=== PATIENT | female | born 1980 | race Caucasian/White ===

== ENCOUNTER 2020-03-24 12:49 | Outpatient (CLI) | payer BC, SELFPAY ==
--- NOTE | ~2020-03-24 | XR_ITS ---
EXAMINATION: XR knee LT min 4V DATE: 03/24/2020 13:26 INDICATION: Left knee pain. TECHNIQUE: 5 views of left knee were obtained. COMPARISON: None. FINDINGS: There is lateral subluxation of patella. No acute fracture. There is mild tricompartmental osteoarthritis. There is a 5 mm fragment of heterotopic ossification medial to patella. No knee joint effusion. IMPRESSION: 1. Mild left knee osteoarthritis. Reviewed, dictated and finalized at location A. S TRAINEE
== END 2020-03-24 12:50 ==
PROVIDERS: PCP Family Medicine; Visit Provider Family Medicine
DX: M17.12 Unilateral primary osteoarthritis, left knee (principal)
CPT/HCPCS: 73564

== ENCOUNTER 2020-04-28 17:17 | Emergency (ER) | payer BC, SELFPAY ==
--- NOTE | ~2020-04-28 | CT_ITS ---
EXAMINATION: CT abdomen pelvis w con INDICATION: Right lower quadrant abdominal pain TECHNIQUE: Computed tomographic images of the abdomen and pelvis were obtained after the administrati on of 100 cc of Omnipaque 350 intravenous contrast. The dose-length product (DLP) was 1237.32 mGy-cm. Automated exposure control and iterative reconstruction technique were employed. COMPARISON: None available FINDINGS: The lung bases are clear. The heart size is normal. The liver, spleen, pancreas, and adrena l glands are normal. Stones are present in the nondistended gallbladder. The left kidney is unremarka ble. There is a 6 mm nonobstructing stone of the right kidney. No stones are present in the ureters o r bladder. There is no hydronephrosis or hydroureter. The appendix is normal. No pathologically enlar ged abdominal or pelvic lymph nodes are identified. There is no free intraperitoneal gas or evidence of bowel obstruction. Fluid is noted in the endometrial canal which may relate to patient's menstrual cycle. IMPRESSION: 1. Cholelithiasis without evidence of cholecystitis. Reviewed, dictated and finalized at location A. RT OPERATOR
[2020-04-28 17:38] VITALS: BP 126/86; PULSE 106; RESP 16; TEMP 36.8; O2SAT 96
[2020-04-28 17:54] LABS: Basophils Absolute Auto 0.1 K/mm3 (0.0-0.1); Basophils Percent Auto 0.4 % (0.2-1.2); Eosinophils Absolute Auto 0.2 K/mm3 (0-0.3); Eosinophils Percent Auto 1.4 % (0-4.4); Hematocrit 40.4 % (37.0-47.0); Hemoglobin 13.3 g/dL (12.0-15.0); Immature Granulocyte Absolute 0.08 K/mm3 (0.00-0.031); Immature Granulocyte Percent A 0.7 % (0-0.5); Lymphocytes Percent Auto 24.1 % (18.3-44.2); Mean Corpuscular HGB Conc 32.9 g/dl (32-36); Mean Corpuscular Hemoglobin 28.5 pg (26-34); Mean Corpuscular Volume 86.7 fl (80-100); Mean Platelet Volume 8.9 fl (7.4-10.4); Monocytes Absolute Auto 0.7 K/mm3 (0.1-0.6); Monocytes Percent Auto 5.8 % (2.6-8.5); Neutrophils Absolute Auto 7.8 K/mm3 (1.3-6.7); Neutrophils Percent Auto 67.6 % (45.5-73.1); Platelet Count Result 464 k/mm3 (150-375); Red Blood Count 4.66 M/mm3 (4.2-5.4); Red Cell Distribution Width 13.1 % (11.5-14.5); White Blood Count 11.6 K/mm3 (4.5-10.0)
[2020-04-28 18:06] LABS: Add Urine Microscopic? YES; Amorphous Sediment Urine Moderate; Appearance Urine Cloudy (Clear); Bacteria Urine Trace /hpf; Bilirubin Urine Negative (Negative); Blood Urine Negative (Negative); Color Urine Yellow (Yellow); Glucose Urine UA Negative (Negative); Ketones Urine Negative (Negative); Leukocyte Esterase Ur Negative LEU/UL (Negative); Mucus Urine Rare /lpf; Nitrate Urine Negative (Negative); Protein Urine 1+ mg/dL (Negative); RBC Urine 0-2 /hpf (0-2); Specific Grav Ur 1.018 (1.001-1.035); Squamous Epithelial Cell Urine Many /hpf (Few); Urobilinogen Urine Negative mg/dL (<2.0); WBC Urine 0-3 /hpf
[2020-04-28 18:07] LABS: Alanine Aminotransferase 15 U/L (4-35); Albumin Level 4.3 g/dL (3.5-5.1); Alkaline Phosphatase 113 U/L (38-126); Anion Gap 7 mmol/L (8-16); Aspartate Amino Transferase 22 U/L (14-36); Bilirubin,Total 0.6 mg/dL (0.2-1.3); Blood Urea Nitrogen 9 mg/dL (7-17); Calcium 9.6 mg/dL (8.4-10.2); Carbon Dioxide 24 mmol/L (22-30); Chloride 105 mmol/L (98-107); Estimated Glomerular Filt Rate > 60; Glucose 136 mg/dL (65-105); Lipase 157 U/L (23-300); Potassium 3.7 mmol/L (3.4-5.0); Sodium 136 mmol/L (137-145)
--- NOTE | 2020-04-28 20:26 | ED.GENADULT ---
HPI - General Adult General Chief complaint: Abdominal Pain Stated complaint: Abdominal pain Time Seen by Provider: 04/28/20 19:50 Source: patient History of Present Illness HPI narrative: Patient is a 39 y/o female complaining of abdominal pain and bloating starting 2 weeks ago. She describes her pain as sharp and rates it as 5/10. Her pain is mostly located in right lower abdomen. She states she took laxative which did not help. She also had some vomiting today. Related Data Allergies Allergy/AdvReac Type Severity Reaction Status Date / Time No Known Allergies Allergy Unverified 06/02/12 12:18 Review of Systems Constitutional: Constitutional: Denies chills, Denies fever(s), Denies headache(s) and Denies weakness Eyes: Eyes: Denies blurry vision ENT: Denies headache(s) and Denies neck pain Cardiovascular: Cardiovascular: Denies chest pain and Denies dyspnea Respiratory: Respiratory: Denies cough and Denies dyspnea Gastrointestinal: Gastrointestinal: Reports abdominal pain, Denies diarrhea, Reports nausea and Reports vomiting Genitourinary: Genitourinary: Denies hematuria and Denies dysuria Musculoskeletal: Musculoskeletal: Denies back pain and Denies neck pain Neurologic: Denies headache(s) and Denies weakness [facility] Family History Family History Father Acute myocardial infarction, Onset Age: 39 Mother Family history of congestive heart failure, Onset Age: 69 Social History Social History Smoking status: Current every day smoker Alcohol intake: current Exam Const: General: no acute distress and well developed Orientation/consciousness: oriented to person, oriented to place, oriented to time and patient oriented x3 HENMT: Head: normocephalic Ears: external ears normal General nose exam: Normal external nose present Eyes: General: appearance normal, both eyes and all related structures Conjunctivae: conjunctivae normal Neck: Neck: normal visual inspection and full ROM Chest: Chest palpation & inspection: normal inspection of the chest and no tenderness Resp: Effort & Inspection: normal respiratory effort Auscultation: clear to auscultation bilaterally Cardio: Rate: regular rate Rhythm: regular rhythm GI: GI Palp: No abdominal tenderness and Yes Soft to palpation Skin: General skin exam: normal color and turgor normal Neuro: General: oriented to person, oriented to place, oriented to time and patient oriented x3 Cognition (Neuro): normal cognition Extrem: General: normal to inspection, full ROM and no pedal edema Psych: Appearance: grossly normal Mental Status: mental status grossly normal Affect: normal affect Course Vital Signs Vital signs: Vital Signs Temperature 36.8 C 04/28/20 17:38 Pulse Rate 106 H 04/28/20 17:38 Respiratory Rate 16 04/28/20 17:38 Blood Pressure 126/86 04/28/20 17:38 Pulse Oximetry 96 04/28/20 17:38 Temperature 36.8 C 04/28/20 17:38 Pulse Rate 68 04/28/20 22:53 Respiratory Rate 16 04/28/20 22:53 Blood Pressure 118/75 04/28/20 22:53 Pulse Oximetry 100 04/28/20 22:53 Medical Decision Making Vital Signs Vital Signs: Vital Signs Temperature 36.8 C 04/28/20 17:38 Pulse Rate 106 H 04/28/20 17:38 Respiratory Rate 16 04/28/20 17:38 Blood Pressure 126/86 04/28/20 17:38 Pulse Oximetry 96 04/28/20 17:38 Temperature 36.8 C 04/28/20 17:38 Pulse Rate 68 04/28/20 22:53 Respiratory Rate 16 04/28/20 22:53 Blood Pressure 118/75 04/28/20 22:53 Pulse Oximetry 100 04/28/20 22:53 Lab Data Result diagrams: 04/28/20 17:43 04/28/20 17:43 Labs: Lab Results 04/28/20 04/28/20 04/28/20 Range/Units 17:43 17:43 17:50 WBC 11.6 H (4.5-10.0) K/mm3 RBC 4.66 (4.2-5.4) M/mm3 Hgb 13.3 (12.0-15.0) g/dL Hct 40.4 (37.0-47.0) %
[2020-04-28 22:53] VITALS: BP 118/75; PULSE 68; RESP 16; O2SAT 100
== END 2020-04-28 22:54 | disposition home or self-care (01) ==
PROVIDERS: Emergency Provider Emergency Medicine; PCP Family Medicine
DX: K80.20 Calculus of gallbladder without cholecystitis without obstruction (principal); F17.200 Nicotine dependence, unspecified, uncomplicated
CPT/HCPCS: 36415; 74177; 80053; 81001; 81025; 83690; 85025; 99284; Q9967

== ENCOUNTER → 2021-09-24 07:57 | Outpatient (CLI) | payer SELFPAY ==
--- NOTE | ~2021-09-24 | MR_ITS ---
EXAMINATION: MR knee LT wo con DATE: 09/24/2021 08:43 INDICATION: Knee dislocation with meniscal tear. Chronic anterior and lateral left knee pain and swel ling. TECHNIQUE: Magnetic resonance imaging (MRI) of the left knee was performed without intravenous contra st. Sequences included coronal PD-weighted FSE, coronal PD-weighted FS FSE, sagittal T2-weighted FSE , sagittal PD-weighted FS FSE and axial PD weighted fat saturated FSE. COMPARISON: Left knee radiographs dated 08/23/2021 and 03/24/2020 FINDINGS: Medial compartment: Medial meniscus is normal. Articular cartilage is normal. Lateral compartment: Lateral meniscus is normal. Articular cartilage is normal. Patellofemoral compartment: Chronic 1.5 cm lateral subluxation of the left patella. Full-thickness chondral ulceration at the pat ellar apical ridge and medial side of the lateral facet without degenerative subchondral changes and at the lateral half of the lateral trochlea where there is mild underlying cortical irregularity and minimal underlying edema-like marrow signal change. Ligaments and tendons: Anterior and posterior cruciate ligaments are normal. The medial collateral ligament and fibular jessica ateral ligament complex are normal. The extensor mechanism is normal. Mild tendinopathy of the distal semimembranosus tendon without discrete tear. The visualized medial and lateral hamstring tendons as well as the iliotibial band are otherwise normal. Fluid: Minimal left knee joint effusion at the lateral gutter of the suprapatellar pouch. Osseous/other: No fracture or pathologic marrow replacing process. A couple heterotopic ossicles in the fat pad joo g the inferior and medial margins of the patella, the larger measuring 1.3 x 0.5 x 1.0 cm. IMPRESSION: 1. 1.5 cm lateral patellar subluxation with high-grade patellar and lateral trochlear chondromalacia. 2. Mild semimembranosus tendinopathy without tear. Reviewed, dictated and finalized at location A. IMPRESSION: 1. 1.5 cm lateral patellar subluxation with high-grade patellar and lateral tro chlear chondromalacia. 2. Mild semimembranosus tendinopathy without tear.
== END ==
PROVIDERS: PCP Family Medicine; Visit Provider Nurse Practitioner Family
DX: M25.562 Pain in left knee (principal); S83.012A Lateral subluxation of left patella, initial encounter; M22.42 Chondromalacia patellae, left knee; M76.52 Patellar tendinitis, left knee
CPT/HCPCS: 99199; 73721

== ENCOUNTER 2022-07-18 02:48 | Emergency (ER) | payer OTHER, BC, SELFPAY ==
--- NOTE | ~2022-07-18 | CT_ITS ---
EXAMINATION: CT abdomen pelvis wo con DATE: 07/18/2022 03:38 INDICATION: Left flank pain. TECHNIQUE: Computed tomography (CT) of the abdomen and pelvis was performed without intravenous contr ast. Automated exposure control and iterative reconstruction technique were employed. The dose-length product was 768.12 mGy-cm. COMPARISON: CT abdomen and pelvis 04/28/2020 FINDINGS: The visualized portions of the lung bases are clear without pneumonia or pleural effusion. The heart size is normal. No pericardial effusion. The liver and spleen are normal. There are changes of cholecystectomy. There are dropped gallstones posterior to the liver. The pancreas and adrenal gl ands are normal. There are 2 stones in right kidney measuring up to 5 mm. There are 4 stones in left kidney measuring up to 5 mm. There is mild left hydronephrosis and hydroureter. There is a 3 mm stone in distal left ureter. There is a tampon in the vagina. There are no dilated loops of bowel. The gwen endix is normal. There is an umbilical hernia containing fat. There are no pathologically enlarged ly mph nodes. There is no free intraperitoneal fluid. There is mild chronic anterior wedging of multiple vertebral bodies. There are chronic bilateral L5 pars defects. There is moderate thoracic spondylosi s and mild lumbar spondylosis. IMPRESSION: 1. 3 mm stone in distal left ureter with mild left hydronephrosis and hydroureter. 2. Bilateral nonobstructing kidney stones. 3. Umbilical hernia containing fat. Reviewed, dictated and finalized at location A. IMPRESSION: 1. 3 mm stone in distal left ureter with mild left hydronephrosis and hydrouret er. 2. Bilateral nonobstructing kidney stones. 3. Umbilical hernia containing fat.
[2022-07-18 02:53] VITALS: BP 130/62; PULSE 84; RESP 14; TEMP 36.6; O2SAT 99
--- NOTE | 2022-07-18 03:27 | PC.NURSE ---
pt left department to get scan.
--- NOTE | 2022-07-18 03:38 | ED.GENADULT ---
HPI - General Adult General Chief complaint: Urogenital-Female Stated complaint: Kidney stone Time Seen by Provider: 07/18/22 03:08 History of Present Illness HPI narrative: Patient is a 42-year-old female who presents the emergency department with chief complaint possible kidney stone. Patient reports that today she started having pain in the left flank area reports it radiates to the left lower quadrant patient reports that she had difficulty getting comfortable at home and ultimately was able to get the pain to calm down. Patient denies nausea or vomiting reports that the bleeding has been controlled at home prior to arrival. Related Data Home Medications Medication Instructions Recorded Confirmed hydroxyzine HCl 10 mg tablet 10 mg PO TID PRN 08/23/21 olanzapine 5 mg tablet 5 mg PO DAILY 08/23/21 sertraline 50 mg tablet 50 mg PO DAILY 08/23/21 Allergies Allergy/AdvReac Type Severity Reaction Status Date / Time adhesive tape AdvReac Unknown Redness of Verified 08/27/21 09:19 Skin Review of Systems Review of Systems: A 10 system review of systems was completed on the patient and is negative except for what is stated in the HPI. Nursing and ancillary documentation was reviewed. [facility] Past Medical History Medical History Injury of ligament of knee Left knee pain Patellar subluxation Surgical History Surgical History History of cholecystectomy Family History Family History Father Acute myocardial infarction, Onset Age: 39 Mother Family history of congestive heart failure, Onset Age: 69 Social History Social History Smoking packs per day: 1 Smoking cigarettes per day: 20.0 Smoking status: Current every day smoker Tobacco type: cigarettes Alcohol intake: unknown Substance use: current Substance use type: marijuana Living arrangements: alone Occupation/Education: occupation Exam Narrative: GENERAL: Well-appearing, well-nourished, and in no acute distress. HEAD: Normocephalic, atraumatic. EYES: PERRLA and EOMI. ENT: Nares clear, no rhinorrhea or epistaxis. Mucous membranes moist. NECK: Supple. CHEST: Clear to auscultation. No respiratory distress. HEART: Regular rate and rhythm. No murmur heard. Normal peripheral pulses. ABDOMEN: Soft, nontender, nondistended, normal active bowel sounds. EXTREMITIES: Normal range of motion. No edema. SKIN: Warm, dry, no rash. NEURO: No focal deficits. Alert and oriented x3. PSYCH: Normal mood and affect. Course Vital Signs Vital signs: Vital Signs Temperature 36.6 C 07/18/22 02:53 Pulse Rate 84 07/18/22 02:53 Respiratory Rate 14 07/18/22 02:53 Blood Pressure 130/62 07/18/22 02:53 Pulse Oximetry 99 07/18/22 02:53 Oxygen Delivery Room Air 07/18/22 02:53 Temperature 36.6 C 07/18/22 02:53 Pulse Rate 69 07/18/22 06:40 Respiratory Rate 16 07/18/22 06:40 Blood Pressure 99/61 L 07/18/22 06:40 Pulse Oximetry 99 07/18/22 06:40 Oxygen Delivery Room Air 07/18/22 02:53 Medical Decision Making MDM Narrative Medical decision making narrative: Differential diagnosis includes ureterolithiasis, UTI, pyelonephritis, intra-abdominal infection, Laboratory studies were obtained which showed normal CBC CMP showed a creatinine of 0.7 with normal liver enzymes CT scan of the abdomen pelvis showed 1. 3 mm stone in distal left ureter with mild left hydronephrosis and hydroureter. 2. Bilateral nonobstructing kidney stones. 3. Umbilical hernia containing fat. Vital Signs Vital Signs: Vital Signs Temperature 36.6 C 07/18/22 02:53 Pulse Rate 84 07/18/22 02:53 Respiratory Rate 14 07/18/22 02:53 Blood Pressure
[2022-07-18] MEDS: SODIUM CHLORIDE 0.9% IV 1,000 ML 999 ML IV CONT (04:17)
[2022-07-18] MEDS: ONDANSETRON INJ 4 MG/2 ML VIAL IV PUSH (04:18)
[2022-07-18] MEDS: MORPHINE SULFATE (*CRX) 4 MG/ML INJ IV PUSH (04:18)
[2022-07-18 04:20] LABS: Basophils Absolute Auto 0.1 K/mm3 (0.0-0.1); Basophils Percent Auto 0.6 % (0.2-1.2); Eosinophils Absolute Auto 0.2 K/mm3 (0-0.3); Eosinophils Percent Auto 1.9 % (0-4.4); Hematocrit 40.9 % (37.0-47.0); Hemoglobin 13.7 g/dL (12.0-15.0); Immature Granulocyte Absolute 0.04 K/mm3 (0.00-0.031); Immature Granulocyte Percent A 0.5 % (0-0.5); Lymphocytes Percent Auto 21.2 % (18.3-44.2); Mean Corpuscular HGB Conc 33.5 g/dl (32-36); Mean Corpuscular Hemoglobin 30.1 pg (26-34); Mean Corpuscular Volume 89.9 fl (80-100); Mean Platelet Volume 8.6 fl (7.4-10.4); Monocytes Absolute Auto 0.5 K/mm3 (0.1-0.6); Monocytes Percent Auto 5.5 % (2.6-8.5); Neutrophils Percent Auto 70.3 % (45.5-73.1); Platelet Count Result 371 k/mm3 (150-375); Red Blood Count 4.55 M/mm3 (4.2-5.4); Red Cell Distribution Width 12.4 % (11.5-14.5); White Blood Count 8.5 K/mm3 (4.5-10.0)
[2022-07-18 04:30] LABS: Alanine Aminotransferase 21 U/L (6-35); Alkaline Phosphatase 81 U/L (38-126); Anion Gap 5 mmol/L (8-16); Aspartate Amino Transferase 26 U/L (14-36); Bilirubin,Total 0.6 mg/dL (0.2-1.3); Blood Urea Nitrogen 10 mg/dL (7-17); Calcium 9.2 mg/dL (8.4-10.2); Carbon Dioxide 29 mmol/L (22-30); Chloride 105 mmol/L (98-107); Estimated Glomerular Filt Rate > 60; Glucose 111 mg/dL (65-110); Lipase 80 U/L (23-300); Sodium 139 mmol/L (137-145)
[2022-07-18 06:40] VITALS: BP 99/61; PULSE 69; RESP 16; O2SAT 99
[2022-07-18 06:45] LABS: Bacteria Urine None Seen /hpf; Non Pathogenic Casts 0-2; RBC Urine >100 /hpf (0-2); Squamous Epithelial Cell Urine Occasional /hpf (Few)
[2022-07-18 06:55] LABS: Appearance Urine Cloudy (Clear); Bilirubin Urine Negative (Negative); Blood Urine 3+ (Negative); Glucose Urine UA Negative (Negative); Ketones Urine Negative (Negative); Leukocyte Esterase Ur Trace LEU/UL (Negative); Nitrate Urine Negative (Negative); Protein Urine Trace mg/dL (Negative); Specific Grav Ur 1.012 (1.001-1.035); Urobilinogen Urine 0.2 mg/dL (<2.0); pH Urine 6.5 (5.0-9.0)
[2022-07-18 06:56] LABS: Color Urine Light Red (Yellow)
[2022-07-18 06:57] LABS: Add Urine Microscopic? YES
[2022-07-18 07:35] VITALS: BP 99/66; PULSE 69; RESP 16; O2SAT 97
== END 2022-07-18 07:25 | disposition home or self-care (01) ==
PROVIDERS: Emergency Provider Emergency Medicine; PCP Family Medicine
DX: N20.1 Calculus of ureter (principal); N39.0 Urinary tract infection, site not specified
CPT/HCPCS: 36415; 74176; 80053; 81001; 81025; 83690; 85025; 87086; 87088; 96361; 96374; 96375; 99284; J2270; J2405; J7030

== ENCOUNTER 2022-11-07 15:24 | Emergency (ER) | payer OTHER, BC, SELFPAY ==
[2022-11-07 15:35] VITALS: BP 120/80; PULSE 98; RESP 18; TEMP 36.8; O2SAT 98
--- NOTE | 2022-11-07 16:05 | ED.URI ---
HPI - URI/Sore Throat General Chief Complaint: Upper Respiratory Infection Stated Complaint: Mouth Pain History of Present Illness HPI Narrative: 42-year-old female presented for complaint of burning tongue and mouth over the past few days. States her tongue appears coated and reports 'growths' on the back of her tongue. Has not been taking antibiotics. Denies bleeding. Not taking anything for symptoms. Denies n/v/d/f/c. Daily smoker. Related Data Home Medications Medication Instructions Recorded Confirmed hydroxyzine HCl 10 mg tablet 10 mg PO TID PRN 08/23/21 olanzapine 5 mg tablet 5 mg PO DAILY 08/23/21 sertraline 50 mg tablet 50 mg PO DAILY 08/23/21 Allergies Allergy/AdvReac Type Severity Reaction Status Date / Time adhesive tape AdvReac Unknown Redness of Verified 11/07/22 15:44 Skin Review of Systems Review of Systems: CONSTITUTIONAL: Denies body aches, fever, chills, or sweats. EYES: Denies visual changes, redness, or discharge. ENT: Reports throat pain Denies rhinorrhea, congestion, or otalgia. CARDIOVASCULAR: Denies chest pain, palpitations, or edema. RESPIRATORY: Denies dyspnea. GASTROINTESTINAL: Denies abdominal pain, nausea, vomiting, or diarrhea. SKIN: Denies rash, itching, or wounds. MUSCULOSKELETAL: Denies back pain, joint pain, or myalgia. NEUROLOGIC: Denies headache PMFSH Past Medical History Medical History Injury of ligament of knee Left knee pain Patellar subluxation Surgical History Surgical History History of cholecystectomy Family History Family History Father Acute myocardial infarction, Onset Age: 39 Mother Family history of congestive heart failure, Onset Age: 69 Social History Social History Smoking packs per day: 1 Smoking cigarettes per day: 20.0 Smoking status: Current every day smoker Tobacco type: cigarettes Alcohol intake: unknown Substance use: current Substance use type: marijuana Living arrangements: alone Occupation/Education: occupation Exam Narrative: GENERAL: well-appearing EYES: conjunctivae clear ENT: Mucous membranes moist. TM pearly singh with normal light reflex bilaterally; no tragal tenderness. Oropharynx erythematous without lesions. Tonsils enlarged and without exudate. 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 No drooling, bleeding, no hoarseness, no trismus, uvula midline. No tripod positioning, hot potato voice, or soft palate swelling. NECK: Supple. No lymphadenopathy CHEST: Clear to auscultation, breath sounds equal. No respiratory distress, speaks in full sentences. HEART: Regular rate and rhythm. No murmur heard. SKIN: Warm, dry, no rash. NEURO: Alert and oriented x3. Course Course Emergency Course: Patient is aware of diagnosis, understands and agrees to treatment plan. Anticipatory guidance given. Patient agrees to follow-up as directed and is aware of reasons to seek care at the emergency department. Portions of this record may have been created with voice recognition software Level of Care: Express Care Visit Vital Signs Vital signs: Vital Signs Temperature 98.3 F 11/07/22 15:35 Pulse Rate 98 11/07/22 15:35 Respiratory Rate 18 11/07/22 15:35 Blood Pressure 120/80 11/07/22 15:35 Pulse Oximetry 98 11/07/22 15:35 Oxygen Delivery Room Air 11/07/22 15:35 Temperature 98.3 F 11/07/22 15:35 Pulse Rate 98 11/07/22 15:35 Respiratory Rate 18 11/07/22 15:35 Blood Pressure 120/80 11/07/22 15:35 Pulse Oximetry 98 11/07/22 15:35 Oxygen Delivery Room Air 11/07/22 15:35 MDM - URI/Sore Throat MDM Narrative Medical decision making narrative: strep result reviewed with pt; will send Nystatin for
== END 2022-11-07 16:20 | disposition home or self-care (01) ==
PROVIDERS: Emergency Provider Nurse Practitioner Family; PCP Family Medicine
DX: B37.0 Candidal stomatitis (principal); F17.210 Nicotine dependence, cigarettes, uncomplicated; F12.90 Cannabis use, unspecified, uncomplicated
CPT/HCPCS: 87081; 87880; 99213; G0463

== ENCOUNTER 2023-01-20 09:48 | Outpatient (CLI) | payer OTHER, BC, SELFPAY ==
--- NOTE | ~2023-01-20 | US_ITS ---
US thyroid INDICATION: Solitary thyroid nodule. TECHNIQUE: Real-time sonographic images of the thyroid gland were obtained. COMPARISON: No prior studies for comparison. FINDINGS: The right thyroid lobe measures 5.8 x 2.8 x 3.1 cm. The left thyroid lobe measures 4.5 x 1 .4 x 1.5 cm. Thyroid echotexture is heterogeneous.. In the right lobe there is a complex heterogeneou s solid mass measuring 3.9 x 2.8 x 2.9 cm which is solid, hypoechoic, wider than tall, smoothly nataly nated with macrocalcifications, TR 4. Normal vascular flow is present. IMPRESSION: 1. Complex right thyroid mass measuring 3.9 cm. Ultrasound-guided fine-needle aspiration biopsy di mmended. Reviewed, dictated and finalized at location B. SPORTATION MAINTENANCE SPECIALIST IMPRESSION: 1. Complex right thyroid mass measuring 3.9 cm. Ultrasound-guided fine-needle aspiration biopsy recommended.
== END 2023-01-20 09:49 ==
LOC: MICIMG 09:51
PROVIDERS: PCP Family Medicine; Visit Provider Family Medicine
DX: E04.1 Nontoxic single thyroid nodule (principal)
CPT/HCPCS: 76536

== ENCOUNTER 2023-03-16 14:45 | Outpatient (RCR) | payer OTHER, BC, SELFPAY ==
--- NOTE | 2023-03-02 09:49 | OTOPDC ---
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 She underwent resection Feb 08, 2023. Pathology has not confirmed whether the tumor is malignant, so she is unsure whether she'll have to do radiation. 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 Patient reporting difficulties with short term memory and attention. She reports she is in the process of requesting ST orders for the residual cognitive difficulties. She works for [employer] in a [employer] and is going back to work Mar 22. 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 She cannot drive for 6 months due to seizure precautions. Patient is right handed and lives at home with her . She has returned to being independent with ADLs. She hasn't returned to cooking due to having difficulty following steps to cook. Assessment OT Clinical Summary Patient referred to OT with dx of brain lesion s/p tumor resection. She presents with intact, functional, and symmetrical upper body strength. Hand strength and coordination is WNL. She is currently at her baseline with ADLs. No skilled OT indicated at this time. Patient would benefit from a speech therapy evaluation for assessment of cognitive skills. Plan of Care OT Services Indicated No
--- NOTE | 2023-03-02 13:09 | PTOPEVAL1 ---
Assessment and note entered by Yemi Elliott Evaluation Information Assessment Status Evaluation Diagnosis brain lesion Onset 12/28/22 Subjective Information Pt. reports that she was diagnosed with a brain tumor in December. She underwent resection in January. She is awaiting biopsy results. She states that her doctor is concerned because she has developed balance issues. She reports that her left knee has a tendency to dislocated causing her to fall. She has visited with an ortho who suggested surgery, but she is waiting for a referral to a surgeon in [place]. She states that since the brain tumor development she notices her self feeling some disorientation in standing. She recalls experiencing 2 falls in the past 6 months. Pt. reports that she is currently off work. 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 She reports that she was pretty active prior to injury . Pt. reports that her chornic dislocation of the left knee and balance issues concern her most. Her goal for therapy is to improve her balance and prevent knee dislocation. Reported Pain Level Pain Score 8,3: Self Report Pain Score 8: Self Report Assessment PT Clinical Summary Pt. is a 42 year old female who enters the clinic following development of a brain lesion resulting in balance issues. Pt. also presents with indications of left patellar instability. Continued skilled PT is recommended in order to improve strength of the l.e., balance, reduce pain and improve functional mobility. Plan of Care Interventions Electrical Stimulation,Hot Pack/Cold Pack, Mechanical Traction,Neuro Re-education,Patient/ Caregiver Educati,Therapeutic Activities, Therapeutic Exercise,Self-Care/Home Management PT Services Indicated Yes Treatment Frequency and 2x/week x 10 visits Duration These treatments will address the objective and functional deficits as defined above. The patient will be advanced safely and appropriately in order for the patient to progress towards his/her prior level of function. Additional exercises will be introduced and as well as a comprehensive home exercise program upon discharge, if needed, ?to ensure carryover of functional gains achieved in the clinic. This treatment plan has been reviewed and agreement upon by the patient.
--- NOTE | 2023-03-02 13:11 | OPREHPOC ---
Outpatient Therapy Plan of Care This is a Multidisciplinary Plan of Care that may contain components documented by all disciplines (PT, OT, and ST.) PT Problem 1 PT Problem #1 Knowledge Deficit PT Goal 1 Goal Pt. will be independent with a HEP focusing on l.e . strength and stability. Target Visit 2 PT Problem 2 PT Problem #2 Impaired Balance PT Goal 1 Goal Pt. will score 28/28 on the tinetti -Pt. will be able to maintain single limb stance on right and left for 30 seconds without LOB. Target Visit 10 PT Problem 3 PT Problem #3 Impaired Strength PT Goal 1 Goal Pt. will present with 5/5 bilateral hip abduction strength in order to improve stability at the left knee. Target Visit 10 PT Problem 4 PT Problem #4 Impaired Functional Mobil PT Goal 1 Goal Pt. abraham report no episodes of falls or LOB in a 4- 5 week period -Pt. will improve her LEFS score to 60 or better indicating overall improvement in funciton. Target Visit 10
--- NOTE | 2023-03-08 16:05 | STOPEVAL1 ---
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 She reported that she had been having seizures for approximately ten years and began having daily seizures for about four years, until reaching at least four seizures a day prior to diagnosing the tumor. She reports she went to her primary care physician who sent her to a neurologist for an MRI. At that time two tumors were found to be connected to each other and both were removed at the same time in January. Because the tumors were found to be non-malignant, no chemotherapy or radiation was required. Patient reports she still has some motion issues for which she is seeing Physical Therapy. She reports that currently, she has difficulty following conversations, following directions, and some difficulty with word-finding. She describes it as requiring a moment to articulate the word she is trying to think of; for example if she is trying to say the word red, she knows what the color looks like but she would have to take a moment to pull out the word red. Patient stated she still requires her to assist with with recall for medication. Today the [place] Naming Test and the [facility] Adult Cognitive Evaluation were offered. Given the [place] Naming Test, patient recalled 40/ 56 words placing her below expected norms. 50-56 is expected for normal aging population. Given the choice of four written words for each item, she increased recall of words to 52/56 items. Given the cognitive evaluation, patient exhibited some issues with immediate recall for lengthy and complex information as patient required therapist to restate directions, statements, and short paragraph story information on several occasions. She recalled temporal, spatial, and biographical information with no deficits noted. Patient was given functional math and again, required therapist to repeat t
--- NOTE | 2023-03-08 16:06 | OPREHPOC ---
Outpatient Therapy Plan of Care This is a Multidisciplinary Plan of Care that may contain components documented by all disciplines (PT, OT, and ST.) PT Problem 1 PT Problem #1 Knowledge Deficit PT Goal 1 Goal Pt. will be independent with a HEP focusing on l.e . strength and stability. Target Visit 2 PT Problem 2 PT Problem #2 Impaired Balance PT Goal 1 Goal Pt. will score 28/28 on the tinetti -Pt. will be able to maintain single limb stance on right and left for 30 seconds without LOB. Target Visit 10 PT Problem 3 PT Problem #3 Impaired Strength PT Goal 1 Goal Pt. will present with 5/5 bilateral hip abduction strength in order to improve stability at the left knee. Target Visit 10 PT Problem 4 PT Problem #4 Impaired Functional Mobil PT Goal 1 Goal Pt. abraham report no episodes of falls or LOB in a 4- 5 week period -Pt. will improve her LEFS score to 60 or better indicating overall improvement in funciton. Target Visit [address] Problem #[address] Goal 1 Goal 1. Patient will voice understanding of areas of deficit and how best to address each area, for example use of memory strategies to facilitate recall. Target Visit [address] Problem #[address] Goal 1 Goal 1. Patient will voice understanding of memory strategies with 90% acc. 2. Patient will determine which strategies would be most beneficial given a variety of situations 90% of the time. Target Visit 8 ST Goal 2 Goal 1. Patient will use memory strategies to facilitate recall of new, oqlojjka-ka-[id number] level information given only one presentation by therapist 80% of the time. 2. Patient will voice steps to tasks that she uses at work in order to assist with visualiziing a successful return to to work 80% acc. for all steps listed for each task. Target Visit 8
--- NOTE | 2023-03-22 15:59 | PCPTNOTE ---
cancelled due to illness
--- NOTE | 2023-03-23 08:02 | PCSTNOTE ---
Therapist was notified by clerical staff that patient would be unable to attend ST sessions this week due to no ride and physician appointment conflicts. Continue next week.
--- NOTE | 2023-03-27 08:43 | PTOPDC ---
Assessment and note entered by Ariadne Espinoza, PT [place] Information Assessment Status Assessment PT Clinical Summary Ms. Shah has received 5 PT sessions, from Mar 02 to . She then called and canceled her appointments. The goals were not addressed. Discharge PT per pt request. Plan of Care PT Services Indicated No
--- NOTE | 2023-03-27 12:08 | STOPDC ---
Assessment and note entered by Yasmeen Yee MACHINIST WOOD Evaluation Information Assessment Status Discharge - Pt Not Presen Assessment Status Discharge - Pt Not Presen Assessment ST Clinical Summary SPEECH THERAPY DISCHARGE SUMMARY This patient was seen for a Speech Evaluation 12/20 and then four additional treatment sessions to address instruction for memory strategies and to address attention to detail. She was instructed in specific memory strategies that we use to recall new information, and then asked to determine the most appropriate strategies for a variety of common situations, such as learning someone's name or recalling where she set down her phone. She completed these tasks with success. She was also presented with new material for recall and demonstrated some mild deficits when distracted before being asked to recall/restate the new information, but without distraction, she exhibited adequate recall. She was discharged with initial goals met but could have benefitted from continued tasks to address that attention to detail and recall given distraction. Thank you for this referral. Plan of Care ST Services Indicated No
== END 2023-03-27 09:51 | disposition home or self-care (01) ==
LOC: ANHST 14:45
PROVIDERS: PCP Family Medicine
DX: D49.6 Neoplasm of unspecified behavior of brain (principal); G93.9 Disorder of brain, unspecified
CPT/HCPCS: 92507; 96125; 97110; 97112; 97161; 97165; 97530

== ENCOUNTER 2023-04-10 12:24 | Outpatient (CLI) | payer OTHER, BC, SELFPAY ==
--- NOTE | ~2023-04-10 | US_ITS ---
EXAMINATION: US FNA w image guidance DATE: 04/10/2023 13:44 INDICATION: Mass of thyroid gland. TECHNIQUE: The procedure and its benefits and risks were discussed with the patient. Risks specifically discusse d included bleeding. The patient verbalized understanding of the risks and agreed to proceed. The nec k was prepped and draped in the usual sterile manner. 1% lidocaine was used for local anesthesia. 6 passes were made with a 25G needle into the lesion under ultrasound guidance. There were no immedia te complications. FINDINGS: Grayscale ultrasound images demonstrate needles advanced into a 3.9 cm nodule in right thyroid lobe f or biopsy. IMPRESSION: 1. Ultrasound-guided fine needle aspiration of a right thyroid nodule. Reviewed, dictated and finalized at location A. PRINTER
== END 2023-04-10 12:25 | disposition home or self-care (01) ==
PROVIDERS: PCP Family Medicine; Visit Provider Family Medicine
DX: E04.9 Nontoxic goiter, unspecified (principal)
CPT/HCPCS: 10005; 88172; 88173; 88305

== ENCOUNTER 2023-04-11 15:08 | Outpatient (CLI) | payer OTHER, BC, SELFPAY ==
--- NOTE | ~2023-04-11 | MR_ITS ---
MRI of the brain Clinical History: Brain tumor Technique: Axial and sagittal T1-weighted images were acquired. These were followed by axial T2-weigh jojo, diffusion weighted, gradient, and FLAIR images. Following intravenous administration of 20 cc Mu ltiHance gadolinium, T1-weighted fat-sat imaging was performed in the axial, coronal, and sagittal pl anes. Findings: There is an area of postsurgical encephalomalacia involving the right temporal lobe, with t hin peripheral enhancement about the operative bed. There is a slightly more prominent focal area of enhancement along the medial margin of the encephalomalacia, which could be related to choroid plexus (series 8 image 10), though focal residual/recurrent tumor is difficult to completely exclude. There is dural thickening and enhancement of the right temporal region, probably reactive due to prior gardenia hiren. There is evidence of prior right temporal craniotomy. Remainder the brain parenchyma is unremarkable. Ventricles are spaces are unremarkable. Orbits are unremarkable. Paranasal sinuses and mastoid air ce lls are clear. Major intracranial flow voids are intact. Sagittal midline structures are intact. 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 Fo marcellus area of slightly more prominent enhancement medially at the operative bed could reflect choroid p javon, though focal residual/recurrent tumor is difficult to completely exclude. Comparison with any prior postoperative MRIs would be useful to assess for stability of findings. Otherwise, follow-up ex am in 3 months recommended to reassess. Probable reactive dural thickening and enhancement at the right temporal region related to prior surg ronda/craniotomy. Reviewed, dictated and finalized at location M. 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 Focal area of slightly more prominent enhancement medially at the operative bed could reflect choroid plexus, though focal residual/recurr ent tumor is difficult to completely exclude. Comparison with any prior postope rative MRIs would be useful to assess for stability of findings. Otherwise, fol low-up exam in 3 months recommended to reassess. Probable reactive dural thickening and enhancement at the right temporal region related to prior surgery/craniotomy.
== END 2023-04-11 15:09 | disposition home or self-care (01) ==
LOC: ANHIMG 15:08
PROVIDERS: PCP Family Medicine
DX: D49.6 Neoplasm of unspecified behavior of brain (principal)
CPT/HCPCS: 70553; A9577

== ENCOUNTER 2023-05-20 21:41 | Emergency (ER) | payer OTHER, BC, SELFPAY ==
--- NOTE | ~2023-05-20 | CT_ITS ---
EXAMINATION: CT abdomen pelvis w con DATE: 05/20/2023 23:52 INDICATION: Left flank pain, intermittent TECHNIQUE: Computed tomography (CT) of the abdomen and pelvis was performed without intravenous contr ast. The dose-length product was 1396.55 mGy-cm. Automated exposure control and iterative reconstruct ion technique were employed. COMPARISON: CT dated 03/2022. FINDINGS: Lung bases unremarkable. Heart size normal. There are distal left ureteral stones with mode rate left hydronephrosis. There is delayed left nephrogram. There are nonobstructing bilateral renal stones. Small fat-containing umbilical hernia. Gallbladder is likely surgically absent. Small fat-containing umbilical hernia. Moderate lower thoracic spondylosis. IMPRESSION: 1. Obstructing distal left ureteral stones with moderate hydronephrosis. 2: Bilateral nephrolithiasis. Reviewed, dictated and finalized at location A.
[2023-05-20 21:48] VITALS: BP 135/73; PULSE 88; RESP 19; TEMP 36; O2SAT 99
[2023-05-20 22:42] LABS: Basophils Percent Auto 0.3 % (0.2-1.2); Eosinophils Absolute Auto 0.2 K/mm3 (0-0.3); Eosinophils Percent Auto 1.6 % (0-4.4); Hematocrit 39.1 % (37.0-47.0); Hemoglobin 12.3 g/dL (12.0-15.0); Immature Granulocyte Absolute 0.07 K/mm3 (0.00-0.031); Immature Granulocyte Percent A 0.5 % (0-0.5); Lymphocytes Absolute Auto 2.02 K/mm3 (0.9-3.2); Lymphocytes Percent Auto 15.9 % (18.3-44.2); Mean Corpuscular HGB Conc 31.5 g/dl (32-36); Mean Corpuscular Hemoglobin 28.3 pg (26-34); Mean Corpuscular Volume 89.9 fl (80-100); Mean Platelet Volume 8.8 fl (7.4-10.4); Monocytes Absolute Auto 0.6 K/mm3 (0.1-0.6); Monocytes Percent Auto 4.3 % (2.6-8.5); Neutrophils Absolute Auto 9.9 K/mm3 (1.3-6.7); Neutrophils Percent Auto 77.4 % (45.5-73.1); Platelet Count Result 400 k/mm3 (150-375); Red Blood Count 4.35 M/mm3 (4.2-5.4); Red Cell Distribution Width 13.5 % (11.5-14.5); White Blood Count 12.7 K/mm3 (4.5-10.0)
[2023-05-20 22:56] LABS: Alanine Aminotransferase 16 U/L (6-35); Albumin Level 4.2 g/dL (3.5-5.1); Alkaline Phosphatase 98 U/L (38-126); Anion Gap 7 mmol/L (8-16); Aspartate Amino Transferase 30 U/L (14-36); Bilirubin,Total 0.3 mg/dL (0.2-1.3); Blood Urea Nitrogen 10 mg/dL (7-17); Calcium 9.5 mg/dL (8.4-10.2); Carbon Dioxide 26 mmol/L (22-30); Chloride 105 mmol/L (98-107); Estimated Glomerular Filt Rate > 60; Glucose 130 mg/dL (65-110); Lipase 161 U/L (23-300); Potassium 3.7 mmol/L (3.4-5.0); Sodium 138 mmol/L (137-145)
--- NOTE | 2023-05-20 23:31 | ED.ABDPAIN ---
HPI - Abdominal Pain General Chief Complaint: Abdominal Pain Stated Complaint: Bilateral flank pain, n/v Time Seen by Provider: 05/20/23 22:53 Source: patient Mode of arrival: ambulatory Limitations: no limitations History of Present Illness HPI narrative: This is a 43 year old female that presents to the ER for left flank/abdominal pain. Ongoing over the last couple weeks. Reports history of kidney stones and her pain feels similar. Reports associated nausea, vomiting and dysuria. Denies fevers or hematuria. Related Data Home Medications Medication Instructions Recorded Confirmed hydroxyzine HCl 10 mg tablet 10 mg PO TID PRN Anxiety 08/23/21 11/07/22 olanzapine 5 mg tablet 5 mg PO DAILY 08/23/21 11/07/22 sertraline 50 mg tablet 50 mg PO DAILY 08/23/21 11/07/22 Allergies Allergy/AdvReac Type Severity Reaction Status Date / Time adhesive tape AdvReac Unknown Redness of Verified 05/20/23 21:52 Skin ibuprofen AdvReac Other Verified 05/20/23 21:52 Review of Systems Review of Systems: CONSTITUTIONAL: Denies fever GASTROINTESTINAL: Reports abdominal pain, nausea, vomiting GENITOURINARY: Reports dysuria. Denies hematuria. All systems reviewed & are unremarkable except as noted in HPI and below PMFSH Past Medical History Medical History Injury of ligament of knee Left knee pain Patellar subluxation Surgical History Surgical History History of cholecystectomy Family History Family History Father Acute myocardial infarction, Onset Age: 39 Mother Family history of congestive heart failure, Onset Age: 69 Social History Social History Smoking packs per day: 1 Smoking cigarettes per day: 20.0 Smoking status: Current every day smoker Tobacco type: cigarettes Alcohol intake: unknown Substance use: current Substance use type: marijuana Living arrangements: alone Occupation/Education: occupation Exam Narrative: GENERAL: Well-appearing, well-nourished, and in no acute distress. HEAD: Normocephalic, atraumatic. EYES: EOMI. CHEST: Clear to auscultation. No respiratory distress. No wheezes rales or rhonchi HEART: Regular rate and rhythm. No murmur heard. Normal peripheral pulses. ABDOMEN: Soft, nontender, nondistended, normal active bowel sounds. No CVA tenderness EXTREMITIES: Normal range of motion. No edema. SKIN: Warm, dry, no rash. NEURO: No focal deficits. Alert and oriented x3. PSYCH: Normal mood and affect Course Course Emergency Course: Patient updated on workup and agrees with plan of care Vital Signs Vital signs: Vital Signs Temperature 96.8 F L 05/20/23 21:48 Pulse Rate 88 05/20/23 21:48 Respiratory Rate 19 05/20/23 21:48 Blood Pressure 135/73 05/20/23 21:48 Pulse Oximetry 99 05/20/23 21:48 Oxygen Delivery Room Air 05/20/23 21:48 Temperature 96.8 F L 05/20/23 21:48 Pulse Rate 89 05/21/23 01:35 Respiratory Rate 14 05/21/23 01:35 Blood Pressure 132/74 05/21/23 01:35 Pulse Oximetry 99 05/21/23 01:35 Oxygen Delivery Room Air 05/20/23 21:48 MDM - Abdominal Pain MDM Narrative Medical decision making narrative: Patient presents the emergency department for left-sided abdominal and flank pain. History of kidney stones. She is afebrile and nontoxic appearing. Her vitals are stable. CBC with mild leukocytosis to 12.7. Metabolic panel with normal kidney function. UA without evidence of infection. Does show greater than [address] abdomen and pelvis shows 2 left distal ureteral stones. Patient updated on her workup and agrees with plan of care. Pain is currently under control. Will be started on Flomax, given pain medication and urine strainer. Instructed to have c
[2023-05-20] MEDS: MORPHINE SULFATE (*CRX) 4 MG/ML INJ IV PUSH (23:37)
[2023-05-20] MEDS: ONDANSETRON INJ 4 MG/2 ML VIAL IV PUSH (23:37)
[2023-05-20] MEDS: SODIUM CHLORIDE 0.9% IV 1,000 ML 999 ML IV CONT (23:37)
[2023-05-21 01:03] LABS: Bacteria Urine None Seen /hpf; Need Manual Microscopic Reviewed; Non Pathogenic Casts 0-2; RBC Urine >100 /hpf (0-2); Squamous Epithelial Cell Urine None Seen /hpf (Few); WBC Urine 0-5 /hpf (0-3)
[2023-05-21 01:05] LABS: Appearance Urine Clear (Clear); Blood Urine 3+ (Negative); Color Urine Light Yellow (Yellow); Glucose Urine UA Negative (Negative); Ketones Urine Negative (Negative); Nitrate Urine Negative (Negative); Protein Urine Negative (Negative)
[2023-05-21 01:06] LABS: Add Urine Microscopic? YES; Bilirubin Urine Negative (Negative); Leukocyte Esterase Ur Negative LEU/UL (Negative); Urobilinogen Urine 0.2 mg/dL (<2.0)
[2023-05-21 01:35] VITALS: BP 132/74; PULSE 89; RESP 14; O2SAT 99
[2023-05-21] MEDS: TAMSULOSIN HCL 0.4 MG CAPSULE PO (01:51)
[2023-05-21] MEDS: HYDROcodone/acetaminophen (*CRX) 5-325 MG TABLET 1 TAB PO (01:51)
[2023-05-21 01:58] VITALS: BP 130/88; PULSE 86; RESP 17; O2SAT 100
== END 2023-05-21 01:59 | disposition home or self-care (01) ==
PROVIDERS: Emergency Provider Physician Assistant; PCP Family Medicine
DX: N13.2 Hydronephrosis with renal and ureteral calculous obstruction (principal); F17.210 Nicotine dependence, cigarettes, uncomplicated; Z87.442 Personal history of urinary calculi; Z90.49 Acquired absence of other specified parts of digestive tract
CPT/HCPCS: 36415; 74177; 80053; 81001; 83690; 85025; 96361; 96374; 96375; 99284; A9270; J2270; J2405; J7030; Q9967

== ENCOUNTER 2023-05-25 01:39 | Day surgery (SDC) | payer OTHER, BC, SELFPAY ==
[2023-05-23 10:36] VITALS: BMI 51.9
--- NOTE | 2023-05-23 10:44 | PC.NURSE ---
Report to the Outpatient Waiting Room, entrance under the green pavilion located off [facility], at time 0830 on date 05/25/23. Planned Procedure Time: 1030. Time changes happen often and if your time is changed the preop area will call you the afternoon before. - You and your visitor will be asked to self-screen and do not enter if you have any COVID symptoms. - A mask is optional within the hospital at this time. Patients may have clear liquids (water, carbonated beverages, clear teas, apple juice) until 3 hours prior to surgery with a maximum of 20 ounces. - No food from midnight until time of surgery - Infants may have breast milk until 4 hours before surgery, infant formula 6 hours prior to surgery. - Children will be allowed to drink immediately following surgery. If applicable, please bring a bottle or sippy cup to assist with drinking. Juice, water, soda, and popsicles are readily available. For infants on formula, please bring formula the day of surgery. Pacifiers are allowed. Take the following medications with a SIP of water the morning of surgery: HYDROCODONE IF NEEDED, LAMOTRIGINE, OLANZAPINE, SERTRALINE DO NOT STOP ANY OF YOUR OTHER PRESCRIPTION MEDICATIONS PRIOR TO SURGERY ?EXCEPT THE FOLLOWING Medications to discontinue per physician: N/A Date to take last dose: N/A Please no make-up, nail romanian, hairspray, perfume, deodorant, or body powder the day of surgery. No jewelry (including any body piercings) or valuables the day of surgery, leave them at home. Please take a shower or bath the night before, or the morning of, surgery with an antibacterial soap. Wear comfortable, loose fitting clothing. - Jewelry must be removed prior to entering the operating room. Rings and piercings that are not removed may be cut off. - The hospital will not accept responsibility for valuables. - Please leave all valuables, including medications, at home the day of surgery. If you are going home after surgery, a licensed compactor driver must drive you home. - NO public transportation without another adult if you receive anesthesia. - We recommend that an adult stay with you for 24 hours following discharge. - We also recommend that you do not drive, make important decision, drink alcoholic beverages, or take any drugs that were not prescribed by your health care provider for at least 24 hours after your discharge time. Follow any additional instructions given to you from your surgeon. If you or anyone in your household have experienced Covid symptoms in the past week, please notify your surgeon or the nurse liaison at the phone number below for possible testing. Telephone instructions given to PT - RUTHLESS and asked if any additional questions and then verbalized understanding. Patient advised to call surgeon office or pre surgery nurse liaison [phone] if any additional questions.
[2023-05-25] VITALS (8 sets, daily range): BP systolic 124–154; BP diastolic 57–93; PULSE 62–94; RESP 12–18; TEMP 36.1–36.4; O2SAT 97–100
--- NOTE | ~2023-05-25 | XR_ITS ---
EXAMINATION: XR retrograde pyelo w/stent LT DATE: 05/25/2023 10:59 INDICATION: Left internal ureteral stent placed TECHNIQUE: Fluoroscopic images from a left internal ureteral stent placement are submitted for review . 39 seconds of fluoroscopy time. FINDINGS: There is a left double-J internal ureteral stent projecting in expected position, with proximal [place] loop at the level of the renal pelvis and distal loop in the pelvis within the bladder lumen. IMPRESSION: 1. Left internal ureteral stent placement. Please refer to real-time procedural findings for detail s. Reviewed, dictated and finalized at location L. IMPRESSION: 1. Left internal ureteral stent placement. Please refer to real-time procedur al findings for details.
--- NOTE | 2023-05-25 06:00 | WPDHPUPDATE1 ---
History and Physical Update Update Date/Time: 05/25/23 06:00 History and Physical has been reviewed, including an updated exam of the patient. There are NO changes in the patient's condition. Risks, benefits, and alternatives have been discussed and questions answered. Patient agrees to proceed with procedure.
--- NOTE | 2023-05-25 08:47 | ECG_ITS ---
Measurements Intervals [place] Rate: 59 P: 41 ME: 160 QRS: 4 QRSD: 87 T: 7 QT: 400 QTc: 399 Interpretive Statements SINUS BRADYCARDIA INFERIOR INFARCT, AGE INDETERMINATE ABNORMAL ECG NO PREVIOUS ECG AVAILABLE FOR COMPARISON Electronically Signed On 05-25-2023 9:36:30 CDT by Mauricio Love D.O.
[2023-05-25] MEDS: LACTATED RINGERS 1,000 ML 30 ML IV CONT (09:05)
--- NOTE | 2023-05-25 10:01 | P.PNAN_ITS ---
Anes - Initial Pre Proc Eval Procedure: Operation Date: 05/25/23 10:30 Proposed Procedures p Cystoscopy, Left Ureteroscopy, Left Stone Extraction, Left Retrogade Pyelogram, Left Stent Placement, Possible Holmium Laser Lithotripsy - Bari Lomeli MD Date/Time: 05/25/23 10:01 Surgeon: Bari Lomeli MD Pre Op Diagnosis: Lt Ureteral Stone Patient Data Age: 43 Gender: F Height: 1.45 m Weight: 103 kg Last Vital Signs Temp 97.6 F 05/25/23 08:37 Pulse 78 05/25/23 08:37 Resp 18 05/25/23 08:37 BP 124/57 L 05/25/23 08:37 Pulse Ox 97 05/25/23 08:37 O2 Del Method Room Air 05/25/23 08:37 Allergies Allergy/AdvReac Type Severity Reaction Status Date / Time adhesive tape AdvReac Unknown Redness of Verified 05/25/23 08:50 Skin ibuprofen AdvReac Other Verified 05/25/23 08:50 Home Medications Medication Instructions Recorded Confirmed Type olanzapine 5 mg tablet 5 mg PO DAILY 08/23/21 05/25/23 History sertraline 50 mg tablet 50 mg PO DAILY 08/23/21 05/25/23 History hydrocodone 5 mg-acetaminophen 325 1 tablet PO Q6H PRN pain #20 tabs 05/21/23 05/25/23 Rx mg tablet tamsulosin 0.4 mg capsule 0.4 mg PO DAILY #14 caps 05/21/23 05/25/23 Rx lamotrigine 100 mg tablet 200 mg PO DAILY 05/23/23 05/25/23 History Patient hx anesthesia problems: none Family hx anesthesia problems: none Results Review: All pre-operative results and documents have been reviewed as part of the pre- operative evaluation. [facility] Past Medical History Medical History Injury of ligament of knee Left knee pain Patellar subluxation Surgical History Surgical History History of cholecystectomy Family History Family History Father Acute myocardial infarction, Onset Age: 39 Mother Family history of congestive heart failure, Onset Age: 69 Social History Social History Smoking packs per day: 1 Smoking cigarettes per day: 20.0 Years smoked: 23 Smoking pack-years: 23.00 Smoking status: Current every day smoker Tobacco type: cigarettes Alcohol intake: never Substance use: current Substance use type: marijuana Living arrangements: with family Occupation/Education: occupation Spiritual care concerns: No Anes - Eval Final PreProcedure Day of Procedure 05/25/23 10:01 Patient weight: super morbidly obese Heart: regular rate and rhythm Lungs: clear to auscultation Airway: Mallampati scale class II Neurological: alert and oriented Last oral intake: >/= 8 hours ASA classification: III Emergent: no Anesthetic plan: proceed Anesthesia type and monitoring: general LMA and standard monitoring Results Review: All pre-operative results and documents have been reviewed as part of the pre- operative evaluation. Informed Consent: The patient's anesthetic plan and its attendant risks and benefits were dis cussed with the patient/family/POA. Questions were solicited and answers provided to the satisfaction of the patient/family/POA.
[2023-05-25] MEDS: ceFAZolin 2 GM/D5W 50 ML 2 GM/50 ML BAG IVPB (10:09)
[2023-05-25] MEDS: LIDOCAINE HCL 2% GEL UROJET 10 ML PKG MUCOUS MEM (10:37)
--- NOTE | 2023-05-25 11:25 | SUR.PHASEI ---
1125:Simple mask removed.
--- NOTE | 2023-05-25 11:33 | W.PM.PROC2 ---
Procedure Note - Detailed Date of Procedure 05/25/23 Pre-op Diagnosis Lt Ureteral Stone Post-op Diagnosis Same Procedure Performed Cystoscopy, left ureteroscopy with laser lithotripsy, stone extraction and stent placement, left retrograde pyelogram Surgeon Bari Lomeli MD Anesthesia General Description of Procedure Patient is brought to the operative suite where she is prepped and draped in routine sterile fashion while in dorsal lithotomy position after the uneventful induction of a general LMA anesthetic. Cystoscopy was undertaken with a 19 F rigid cystoscope. Bladder neck and urethra endoscopically normal. Bladder was normal without hyperemia of the mucosa or neoplasm. She has a single orthotopic ureteral orifice bilaterally. A 0.035 in glidewire advanced into her left renal pelvis. The distal ureter was dilated with an 8 F 10 F dilator. Left ureteroscopy was undertaken 1st with a semi-rigid ureteroscope. She has a sizable stone overlying the left mid ureter at the level of the sacrum. Using a 200 micron holmium laser fiber I dusted the stone and remove all fragments with a 1.9 F disposable stone basket. I performed retrograde pyelography and proximal ureteral re-endoscopy with a 7.5 F flexible ureteral scope. All calices were carefully inspected. There was a 1 additional small stone which was extracted with the same basket. I did place a 4.8 F variable length ureteral stent with proximal coil in the renal pelvis distal coil in the bladder. Scopes and wires removed she was taken recovery room good condition. Drains Yes Packing No Pathology Yes Complications No immediate complications
[2023-05-25] MEDS: oxyCODONE HCL (*CRX) 5 MG TAB IR PO (12:10)
== END 2023-05-25 12:44 | disposition home or self-care (01) ==
PROVIDERS: PCP Family Medicine; Visit Provider Urology
PROC: (CPT 52352; principal; 2023-05-25 10:30)
DX: N20.1 Calculus of ureter (principal); F17.210 Nicotine dependence, cigarettes, uncomplicated; F12.90 Cannabis use, unspecified, uncomplicated; E66.01 Morbid (severe) obesity due to excess calories; Z68.42 Body mass index [BMI] 45.0-49.9, adult; Z79.891 Long term (current) use of opiate analgesic; Z90.49 Acquired absence of other specified parts of digestive tract; Z82.49 Family history of ischemic heart disease and other diseases of the circulatory system
CPT/HCPCS: 52356; 74420; 82365; 88300; 93005; A9270; C1769; C2617; J0690; J1100; J2250; J2405; J2704; J3010; J7120; Q9966

== ENCOUNTER 2023-08-14 15:41 | Outpatient (CLI) | payer OTHER, BC, SELFPAY ==
--- NOTE | ~2023-08-14 | MR_ITS ---
EXAMINATION: MR brain/brain stem wo/w con DATE: 08/14/2023 17:07 INDICATION: Brain tumor. TECHNIQUE: Magnetic resonance imaging (MRI) of the brain and brainstem was performed without and with 20 mL MultiHance intravenous contrast. COMPARISON: Brain MRI 04/11/2023 FINDINGS: There is a resection cavity in right temporal lobe. There is pachymeningeal thickening and enhancement overlying the right temporal lobe with thickness of 3 mm. There is a 7 x 4 x 4 mm mass of contrast enhancement at the medial aspect of the resection cavity. There are scattered areas of nons pecific increased T2-weighted signal intensity in the cerebral white matter, which is within normal l imits for the patient's age. There is no intracranial hemorrhage or acute infarction. The ventricles are normal in size. The orbits are normal. There is mild mucosal thickening in the paranasal sinuses. The mastoid air cells are normal. IMPRESSION: 1. Worsened mass of contrast enhancement at the medial aspect of the right temporal lobe resection ca vity suspicious for residual or recurrent neoplasm. Reviewed, dictated and finalized at location E. IMPRESSION: 1. Worsened mass of contrast enhancement at the medial aspect of the right temp oral lobe resection cavity suspicious for residual or recurrent neoplasm.
== END 2023-08-14 15:42 | disposition home or self-care (01) ==
LOC: ANHIMG 15:44
PROVIDERS: PCP Family Medicine
DX: D33.2 Benign neoplasm of brain, unspecified (principal)
CPT/HCPCS: 70553; A9577

== ENCOUNTER 2023-09-06 09:38 | Outpatient (CLI) | payer OTHER, BC, SELFPAY ==
--- NOTE | ~2023-09-06 | XR_ITS ---
XR heel LT min 2V Ordering provider: Rishi Leach, TELEPHONE [employer]IN BOX COLLECTOR History: . Pain Left Heel . Comparison: None. FINDINGS: BONES: No acute fracture or dislocation. Calcaneal spur. JOINT SPACES: Well maintained. SOFT TISSUES: Normal. IMPRESSION: No acute osseous abnormality. Reviewed, dictated and finalized at location A.
== END 2023-09-06 09:39 ==
LOC: MICIMG 09:41
PROVIDERS: PCP Nurse Practitioner Family; Visit Provider Nurse Practitioner Family
DX: M79.672 Pain in left foot (principal)
CPT/HCPCS: 73650

== ENCOUNTER 2024-01-23 10:50 | Emergency (ER) | payer OTHER, BC, SELFPAY ==
--- NOTE | ~2024-01-23 | CT_ITS ---
EXAMINATION: CT brain wo con DATE: 01/23/2024 12:53 INDICATION: Closed head injury TECHNIQUE: Computed tomography (CT) of the head was performed without intravenous contrast. Sagittal and coronal reconstructions were performed. The mA was adjusted according to patient size. Iterative reconstruction technique was employed. The dose-length product was 681.00 mGy-cm. COMPARISON: Brain MR dated 08/14/2023 FINDINGS: No fracture. Again seen is a likely postoperative region of encephalomalacia at the right temporal lo be underlying a right craniotomy with plate and screw fixation. No acute intracranial hemorrhage, acu te infarction or abnormal extra axial fluid collection. Ventricles are normal and symmetric. No mass/ mass effect. Mucous retention cyst in the left sphenoid sinus. The orbits and mastoid air cells are n ormal. IMPRESSION: 1. No fracture or acute intracranial process. 2. Postoperative changes with region of encephalomalacia in the right temporal lobe and overlying craniologist niotomy. Reviewed, dictated and finalized at location A. CAL TRANSLATOR IMPRESSION: 1. No fracture or acute intracranial process. 2. Postoperative changes with region of encephalomalacia in the right temporal lobe and overlying craniotomy.
--- NOTE | ~2024-01-23 | CT_ITS ---
EXAMINATION: CT cervical spine wo con DATE: 01/23/2024 12:53 INDICATION: Closed head injury TECHNIQUE: Computed tomography (CT) of the cervical spine was performed without intravenous contrast. Automated exposure control and iterative reconstruction technique were employed. The dose-length pro duct was 553.71 mGy-cm. COMPARISON: None FINDINGS: 8 degree cervical thoracic dextrocurvature. Sagittal alignment is normal. Vertebral body heights are normal. No fracture. Moderate disc height loss at C2-C3 and T2-T3. Mild disc height loss at C3-C4 thr ough T1-T2. Posterior disc osteophyte complex resulting in mild central canal stenosis at C5-C6. Ly re facet osteoarthritis on the right at T2-T3. Moderate facet osteoarthritis on the bilaterally at C3 -C4 and T1-T2 and on) was reviewed by left at T2-T3. Mild facet osteoarthritis the remaining cervical facet joints. No neural foraminal stenosis. Visualized apices of lungs are clear. Coarse calcificati ons at a 3.8 cm right thyroid mass which was biopsied on 04/10/2023.. Cervical soft tissues are otherw ise unremarkable. Postoperative change of prior right temporal craniotomy with postoperative region o f encephalomalacia in the right temporal lobe. IMPRESSION: 1. Mild cervical spondylosis without acute osseous abnormality. 2. 3.8 cm right thyroid mass. Correlate with pathology from biopsy performed on 04/10/2023. 3. Likely postoperative region of encephalomalacia in the right temporal lobe with overlying cranioto my. Reviewed, dictated and finalized at location A. ER OFF IMPRESSION: 1. Mild cervical spondylosis without acute osseous abnormality. 2. 3.8 cm right thyroid mass. Correlate with pathology from biopsy performed on 04/10/2023. 3. Likely postoperative region of encephalomalacia in the right temporal lobe w ith overlying craniotomy.
[2024-01-23 10:54] VITALS: BP 123/92; PULSE 78; RESP 19; TEMP 36.4; O2SAT 100
[2024-01-23 11:37] VITALS: BP 111/65; PULSE 74; RESP 20; TEMP 36.7; O2SAT 99
[2024-01-23 12:51] LABS: Alanine Aminotransferase 16 U/L (6-35); Albumin Level 4.4 g/dL (3.5-5.1); Alkaline Phosphatase 103 U/L (38-126); Anion Gap 7 mmol/L (4-12); Aspartate Amino Transferase 28 U/L (14-36); Bilirubin,Total 0.4 mg/dL (0.2-1.3); Blood Urea Nitrogen 11 mg/dL (7-17); Calcium 9.3 mg/dL (8.4-10.2); Carbon Dioxide 25 mmol/L (22-30); Chloride 105 mmol/L (98-107); Estimated Glomerular Filt Rate > 60; Glucose 96 mg/dL (65-110); Magnesium 2.1 mg/dL (1.6-2.3); Potassium 3.9 mmol/L (3.4-5.0); Sodium 137 mmol/L (137-145)
[2024-01-23 13:17] LABS: Basophils Absolute Auto 0.1 K/mm3 (0.0-0.1); Basophils Percent Auto 0.6 % (0.2-1.2); Eosinophils Absolute Auto 0.1 K/mm3 (0-0.3); Eosinophils Percent Auto 1.5 % (0-4.4); Hematocrit 41.5 % (37.0-47.0); Hemoglobin 13.2 g/dL (12.0-15.0); Immature Granulocyte Absolute 0.02 K/mm3 (0.00-0.031); Immature Granulocyte Percent A 0.3 % (0-0.5); Mean Corpuscular HGB Conc 31.8 g/dl (32-36); Mean Corpuscular Hemoglobin 28.8 pg (26-34); Mean Corpuscular Volume 90.4 fl (80-100); Mean Platelet Volume 8.3 fl (7.4-10.4); Monocytes Absolute Auto 0.4 K/mm3 (0.1-0.6); Monocytes Percent Auto 4.5 % (2.6-8.5); Neutrophils Percent Auto 63.1 % (45.5-73.1); Platelet Count Result 396 k/mm3 (150-375); Red Blood Count 4.59 M/mm3 (4.2-5.4); Red Cell Distribution Width 13.7 % (11.5-14.5)
--- NOTE | 2024-01-23 13:53 | ED_ITS ---
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 She presents to the emergency department today with a chief complaint of a ground level mechanical fall while tripping over a rug. She denies losing consciousness but does have a previous intracranial history wanted to be reassured that she did not hurt herself or have any kind of injury to her previous surgical sites. No obvious signs of trauma does not take any blood thinner medications. 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 No loss of consciousness today and she was able to get up unassisted after her fall. She otherwise appears well and is in her normal state of health. Regular follows up with her doctor. Related Data Home Medications Medication Instructions Recorded Confirmed olanzapine 5 mg tablet 5 mg PO DAILY 08/23/21 05/25/23 sertraline 50 mg tablet 50 mg PO DAILY 08/23/21 05/25/23 lamotrigine 100 mg tablet 200 mg PO DAILY 05/23/23 05/25/23 Allergies Allergy/AdvReac Type Severity Reaction Status Date / Time adhesive tape AdvReac Unknown Redness of Verified 05/25/23 08:50 Skin ibuprofen AdvReac Other Verified 05/25/23 08:50 Review of Systems Review of Systems: As reviewed above in HPI [facility] Past Medical History Medical History Injury of ligament of knee Left knee pain Patellar subluxation Surgical History Surgical History History of cholecystectomy Family History Family History Father Acute myocardial infarction, Onset Age: 39 Mother Family history of congestive heart failure, Onset Age: 69 Social History Social History Smoking packs per day: 1 Smoking cigarettes per day: 20.0 Years smoked: 23 Smoking pack-years: 23.00 Smoking status: Current every day smoker Tobacco type: cigarettes Alcohol intake: never Substance use: current Substance use type: marijuana Living arrangements: with family Occupation/Education: occupation Spiritual care concerns: No Exam Narrative: GENERAL: [Well-appearing, well-nourished, and in no acute distress.] HEAD: Right-sided parietal scalp craniotomy site appears intact without any obvious signs of injury. No scalp hematomas are evident. Full range of motion of the head EYES: [PERRLA and EOMI.] ENT: Nares clear, no rhinorrhea or epistaxis. Mucous membranes moist. NECK: Supple. No cervical or upper thoracic spinal sinus or any obvious step- offs deformities CHEST: [Clear to auscultation. No respiratory distress.] HEART: [Regular rate and rhythm]. No murmur heard. [Normal peripheral pulses.] ABDOMEN: [Soft, nondistended], [nontender], [No rigidity or guarding] EXTREMITIES: Normal range of motion. [No edema.] SKIN: Warm, dry, no rash. NEURO: [No focal deficits]. Alert and oriented [x3.] PSYCH: [Normal mood and affect.] Course Vital Signs Vital signs: Vital Signs Temperature 36.4 C 01/23/24 10:54 Pulse Rate 78 01/23/24 10:54 Respiratory Rate 19 01/23/24 10:54 Blood Pressure 123/92 H 01/23/24 10:54 Pulse Oximetry 100 01/23/24 10:54 Oxygen Delivery Room Air 01/23/24 10:54 Temperature 36.7 C 01/23/24 11:37 Pulse Rate 74 01/23/24 11:37 Respiratory Rate 20 01/23/24 11:37 Blood Pressure 111/65 01/23/24 11:37 Pulse Oximetry 99 01/23/24 11:37 Oxygen Delivery Room Air 01/23/24 10:54 MDM - Fall MDM Narrative Medical decision making narrative: 43-year-old female with a history of brain mass status post resection and craniotomy last year. She presents today with a chief complaint of a ground level mechanical fall with hitting her head on the right side. This is the same side she had her surgical procedure on. This was 1 year prior and she has been doing well since. She does have some residual partial seizure activity occasionally but takes medications for this without any recent seizure activity. Fall was purely mechanical in patient states she tripped over a new rug she bought. No blood thinner use since out lose consciousness. Normal reassuring vital signs and she otherwise appears well without any obvious external signs of injury. She has normal reassuring neurological assessment and appears in good spirits. CT head was obtained given her significant intracranial history with elevated potential for skull fracture, displaced with the previous craniotomy site, brain bleed or any other intra cranial process but likelihood given the reassuring exam today. Laboratory studies were also obtained in addition to a CT cervical spine. CT scan of the head shows no acute fractures or intracranial process. Postoperative changes in the area the right temporal lobe with the overlying craniotomy seen. CT cervical spine shows no acute osseous abnormalities. No known thyroid mass which patient has had biopsied previously this year. Postoperative encephalomalacia right temporal lobe. Laboratory studies showed no leukocytosis or anemia. Normal electrolytes without any evidence of electrolyte disturbances or any anion gap. Patient was re-evaluated and still asymptomatic. She is stable for discharge home at this time. Will give her low-dose Robaxin for can neck stiffness and she will follow up with her regular primary care provider and neurologist on outpatient basis. Patient expressed understanding of these instructions and safe for discharge at this time. Medical Records Attestation: I reviewed the patient's medical records. Lab Data Attestation: I reviewed the patient's lab results. 01/23/24 13:09 01/23/24 12:30 Labs: Lab Results 01/23/24 01/23/24 Range/Units 12:30 13:09 WBC 8.0 (4.5-10.0) K/mm3 RBC 4.59 (4.2-5.4) M/mm3 Hgb 13.2 (12.0-15.0) g/dL Hct 41.5 (37.0-47.0) % MCV 90.4 (80-100) fl MCH 28.8 (26-34) pg MCHC 31.8 L (32-36) g/dl RDW 13.7 (11.5-14.5) % Plt Count 396 H (150-375) k/mm3 MPV 8.3 (7.4-10.4) fl Immature Gran % (Auto) 0.3 (0-0.5) % Neut % (Auto) 63.1 (45.5-73.1) % Lymph % (Auto) 30.0 (18.3-44.2) % [place] % (Auto) 4.5 (2.6-8.5) % Eos % (Auto) 1.5 (0-4.4) % Baso % (Auto) 0.6 (0.2-1.2) % Lymph # (Auto) 2.40 (0.9-3.2) K/mm3 [place] # (Auto) 0.4 (0.1-0.6) K/mm3 Eos # (Auto) 0.1 (0-0.3) K/mm3 Baso # (Auto) 0.1 (0.0-0.1) K/mm3 Abs Immat Gran (auto) 0.02 (0.00-0.031) K/mm3 Absolute Neuts (auto) 5.0 (1.3-6.7) K/mm3 Absolute Nucleated RBC 0.000 (0.0-0.012) K/mm3 Nucleated RBC % 0.0 (0.0-0.2) % Sodium 137 (137-145) mmol/L Potassium 3.9 (3.4-5.0) mmol/L Chloride 105 (98-107) mmol/L Carbon Dioxide 25 (22-30) mmol/L Anion Gap 7 (4-12) mmol/L BUN 11 (7-17) mg/dL Creatinine 0.70 (0.7-1.0) mg/dL Estim Creat Clear Calc Not Reportable Estimated GFR > 60 (59 - ) Glucose 96 (65-110) mg/dL Calcium 9.3 (8.4-10.2) mg/dL Magnesium 2.1 (1.6-2.3) mg/dL Total Bilirubin 0.4 (0.2-1.3) mg/dL AST 28 (14-36) U/L ALT 16 (6-35) U/L Alkaline Phosphatase 103 (38-126) U/L Total Protein 8.0 (6.3-8.2) g/dL Albumin 4.4 (3.5-5.1) g/dL Imaging Data Attestation: I personally reviewed and interpreted this imaging study as follows: My impression: Impressions Head CT 01/23/24 12:57 IMPRESSION: 1. No fracture or acute intracranial process. 2. Postoperative changes with region of encephalomalacia in the right temporal lobe and overlying craniotomy. Cervical Spine CT 01/23/24 13:03 IMPRESSION: 1. Mild cervical spondylosis without acute osseous abnormality. 2. 3.8 cm right thyroid mass. Correlate with pathology from biopsy performed on 04/10/2023. 3. Likely postoperative region of encephalomalacia in the right temporal lobe with overlying craniotomy. Discharge Plan Discharge Clinical Impression: CHI (closed head injury) Patient Disposition: Home, Self-Care Condition: Stable Instructions: Antibiotic Form, Head Injury (ED) Additional Instructions: Your CT scans all reassuring without any injury. Normal laboratory studies as well clear please follow-up with your primary care provider outpatient or return with any new or worsening concerns at any time. Prescriptions: New methocarbamol 750 mg tablet 750 mg PO TID PRN (Reason: pain) Qty: 20 0RF No Action sertraline 50 mg tablet 50 mg PO DAILY olanzapine 5 mg tablet 5 mg PO DAILY tamsulosin 0.4 mg capsule 0.4 mg PO DAILY Qty: 14 0RF hydrocodone-acetaminophen 5-325 mg tablet 1 tablet PO Q6H PRN (Reason: pain) Qty: 20 0RF lamotrigine 100 mg tablet 200 mg PO DAILY hydrocodone-acetaminophen 5-325 mg tablet 1 - 2 tablet PO Q6H PRN (Reason: pain) Qty: 20 0RF Follow-up/Referrals: UNKNOWN,DOCTOR [Primary Care Provider] - Time of Disposition: 14:04
[2024-01-23 14:03] VITALS: BP 129/77; PULSE 65; RESP 18; TEMP 36.8; O2SAT 99
== END 2024-01-23 14:15 | disposition home or self-care (01) ==
PROVIDERS: Emergency Provider Student in an Organized Health Care Education/Training Program
DX: S09.90XA Unspecified injury of head, initial encounter (principal); Z90.49 Acquired absence of other specified parts of digestive tract; F17.210 Nicotine dependence, cigarettes, uncomplicated; W18.09XA Striking against other object with subsequent fall, initial encounter; M47.812 Spondylosis without myelopathy or radiculopathy, cervical region; E07.9 Disorder of thyroid, unspecified
CPT/HCPCS: 36415; 70450; 72125; 80053; 83735; 85025; 99284

== ENCOUNTER 2024-03-30 07:21 | Outpatient (CLI) | payer OTHER, BC, SELFPAY ==
--- OUTSIDE RECORDS SUMMARY | 2024-03-30 07:26 | XMS_ITS | Clinical Summary ---
Author Organization [facility] Address [address] [place] [address] Care Team Providers Care Hospital Pharmacy Director Name Role Phone Unavailable Primary Care Provider Unavailabl e Source Comments [facility],non-owned Affiliates and Associated Physician Practices is amultiple site organization consisting of ambulatory clinics and hospital sitesin [place], [place], [place] and [place]. This disclosure is being madepursuant to the Care Everywhere program and may not contain all information available regarding this patient. Last updated 17.[facility] Allergies Active Allergy Reactions Criticality Noted Date Comments Adhesive Sensitivity Other Medium 05/11/2017 IRRITATED SKIN Medications * Be aware that medications may not be up to date on this document. Alwaysverify current medications with the patient. Medication Sig Dispensed Refills Start Date End Date Status hydrOXYzine HCl (Atarax) 50 MG tabletIndications:A nxiety Take 1 (one) tablet by mouth every 6 hours as needed Reasons: Feeling Anxious 30 tablet 1 01/28/2022 Active hydrOXYzine HCl (Atarax) 10 MG tabletIndications:A nxiety Take 1 (one) tablet by mouth 4 times daily Reasons: Feeling Anxious 60 tablet 1 01/28/2022 Active sertraline (Zoloft) 100 MG tabletIndications:M ajor Depressive Disorder Take 1 (one) tablet by mouth once daily Reasons: Major Depressive Disorder 15 tablet 1 01/29/2022 Active prazosin (Minipress) 1 MG capsuleIndications: Nightmares,Sleep Disturbance Take 1 (one) capsule by mouth at bedtime Reasons: Disturbed Sleep, Frightening Dreams 15 capsule 1 01/28/2022 Active ARIPiprazole (Abilify) 5 MG tabletIndications:M ood Disorder Take 1 (one) tablet by mouth at bedtime Reasons: Mood Disorder 15 tablet 1 01/28/2022 Active Active Problems Problem Noted Date Diagnosed Date Generalized anxiety disorder 01/27/2022 Major depressive disorder, recurrent episode, se olmedo 01/26/2022 MDD (major depressive disord er), recurrent severe, without psychosis 05/28/2021 Social History Tobacco Use Types Packs/Day Years Used Date Smoking Tobacco: Every Day Cigarettes 2 15 Smokeless Tobacco: Never Alcohol Use Standard Drinks/Week Comments Not Currently 0 (1 standard drink = 0.6 oz pur e alcohol) AUDIT-C Answer Date Recorded Q1: How often do you have a drink containing alc ohol? Monthly or less 01/26/2022 Q2: How many drinks containi ng alcohol do you have on a typical day when you are drinking? 1 or 2 01/26/2022 Q3: How often do you have si x or more drinks on one occasion? Monthly 01/26/2022 PHQ-2 Answer Date Recorded PHQ2 TOTAL SCORE 6 05/27/2021 Sex and Gender Information Value Date Recorded Sex Assigned at Not on file Gender Identity Not on file Sexual Orientation Not on file Last Filed Vital Signs Vital Sign Reading Time Taken Comments Blood Pressure 114/101 01/29/2022 8:30 AM ELECTROTYPER gael se notified Pulse 85 01/29/2022 8:30 AM ELECTROTYPER Temperature 36.7 ??C (98 ??F) 01/29/2022 8:30 AM ELECTROTYPER Respiratory Rate 17 01/29/2022 8:30 AM ELECTROTYPER Oxygen Saturation 98% 01/29/2022 8:30 AM ELECTROTYPER Inhaled Oxygen Concentration - - Weight 90.7 kg (200 lb) 01/26/2022 5:25 AM ELECTROTYPER Height 144.8 cm (4' 9 ) 01/26/2022 5:25 AM ELECTROTYPER Body Mass Index 43.28 01/26/2022 5:25 AM ELECTROTYPER Plan of Treatment Health Maintenance Due Date Last Done Comments MAMMOGRAM 1982 PAP SMEAR 1982 HIV SCREENING 1997 HEPATITIS C SCREENING 04/24/2000 DTAP/TDAP/TD VACCINES (1 - Tdap) 2001 HEPATITIS B VACCINE (1 of 3 - 19+ 3-dose series) 2001 PNEUMOCOCCAL VACCINE (1 of 2 - PCV) 2001 COVID-19 VACCINE (4 - 2023-2 5 season) 2023 12/05/2020, 05/15/2020, 04/23/2020 INFLUENZA VACCINE (#1) 2023 , 05/05/2017 DEPRESSION SCREENING 02/28/2024 01/25/2022 LIPID TESTING 01/27/2027 01/27/2022, 05/27/2021 ZOSTER VACCINE (1 of 2) 2032 HIB VACCINE Aged Out No longer eligi ble based on patient's age to complete this topic HPV VACCINE Aged Out No longer eligi ble based on patient's age to complete this topic MENINGOCOCCAL (Group B) VACCINE Aged Out No longer eligible b ased on patient's age to complete this topic MENINGOCOCCAL VACCINE Aged Out No garcia bekah eligible based on patient's age to complete this topic Procedures Procedure Name Priority Date/Time Associated Diagnosis Comments LIPID PROFILE AM Draw 01/27/2022 4:28 AM ELECTROTYPER from Last 3 Months or Most Recently Relevant to Health Maintenance Results * (ABNORMAL) LIPID PROFILE (01/27/2022 4:28 AM ELECTROTYPER) Cholesterol 166 <200 mg/dL 01/27/2022 5:17 AM ELECTROTYPER [facility] Triglycerides 109 <150 mg/dL 01/27/2022 5:17 AM ELECTROTYPER [facility] HDL Cholesterol 31(L) >40 mg/dL 2 5:17 AM ELECTROTYPER [facility] LDL Calculated 113 <130 mg/dL 01/27/2022 5:17 AM ELECTROTYPER [facility] VLDL Calculated 22 <=30 mg/dL 2 5:17 AM ELECTROTYPER [facility] Chol HDL Ratio 5.4(H) <4.5 01/27/2022 5:17 AM ELECTROTYPER [facility] LDL/HDL Ratio 3.7 <5.0 01/27/2022 5:17 AM ELECTROTYPER [facility] Blood BLOOD SPECIMEN / Unknown Venipuncture / Unknown 01/27/2022 4:28 AM ELECTROTYPER 01/27/2022 4:40 AM ELECTROTYPER Payam Webb MD LAB - CHEMISTRY [facility] Organization Address City/State/ZIP Co de Phone Number [facility] [address] [place] [address] from Last 3 Months or Most Recently Relevant to Health Maintenance Advance Directives * Full Code (Latest Code Status on File) Date Activated Date Inactivated Comments 01/26/2022 5:49 AM 01/29/2022 1:11 PM * Full Code Date Activated Date Inactivated Comments 05/28/2021 1:45 AM 05/31/2021 4:28 PM
--- OUTSIDE RECORDS SUMMARY | 2024-03-30 07:26 | XMS_ITS | Clinical Summary ---
Author Organization [facility] [place] Address [address] [place] [id number] Care Team Providers Care Hide Stretcher Hand Name Role Phone Yuli Yen MD Primary Care Provider + Active Problems No known active problems Social History Tobacco Use Types Packs/Day Years Used Date Smoking Tobacco: Never Assessed Comments Unknown Sex and Gender Information Value Date Recorded Sex Assigned at Not on file Legal Sex Female 2:21 PM CDT Gender Identity Not on file Sexual Orientation Not on file Last Filed Vital Signs Vital Sign Reading Time Taken Comments Blood Pressure 128/88 10/20/2022 9:33 AM CDT Pulse - - Temperature - - Respiratory Rate - - Oxygen Saturation - - Inhaled Oxygen Concentration - - Weight 102.5 kg (226 lb) 10/20/2022 9:33 AM CDT Height 144.8 cm (4' 9 ) 10/20/2022 9:33 AM CDT Body Mass Index 48.91 10/20/2022 9:33 AM CDT Plan of Treatment Health Maintenance Due Date Last Done Comments DTAP/TDAP/TD VACCINES (1 - Tdap) 2001 HEPATITIS B VACCINES (1 of 3 - 19+ 3-dose series) 2001 CERVICAL CANCER SCREENING 2012 BREAST CANCER SCREENING 2022 INFLUENZA VACCINE (#1) 2023 , 05/05/2017 HPV VACCINES Aged Out No longer eligi ble based on patient's age to complete this topic Insurance * Guarantor: Trippy W BRIE Ferreira (C) Account Type Relation to Patient Date of Phone Billing Address Corporate Employer ATTN: SNEHA EDWARD [address] [address] [employer] Care Teams Hide Stretcher Hand Relationship Specialty Start Date End Date Yuli Yen MD [address] [place] [address] [place] [id number] PCP - General Family Practice 10/20/22
--- OUTSIDE RECORDS SUMMARY | 2024-03-30 07:26 | XMS_ITS | Referral Summary ---
Author Organization [facility] St[facility] Address [address] [place] [address] Care Team Providers Care Dehydrator Name Role Phone Unavailable Primary Care Provider Unavailabl e Source Comments [facility] St[facility],non-owned Affiliates and Associated Physician Practices is amultiple site organization consisting of ambulatory clinics and hospital sitesin [place], [place], [place] and [place]. This disclosure is being madepursuant to the Care Everywhere program and may not contain all information available regarding this patient. Last updated 17.[facility] Allergies Active Allergy Reactions Criticality Noted Date [...] disorder 01/27/2022 Major depressive disorder, recurrent episode, shara 01/26/2022 MDD (major depressive disord er), recurrent [...] Comments Blood Pressure 114/101 01/29/2022 8:30 AM [employer] gael se notified Pulse 85 01/29/2022 8:30 AM [employer] Temperature 36.7 ??C (98 ??F) 01/29/2022 8:30 AM [employer] Respiratory Rate 17 01/29/2022 8:30 AM [employer] Oxygen Saturation 98% 01/29/2022 8:30 AM [employer] Inhaled Oxygen Concentration - - Weight 90.7 kg (200 lb) 01/26/2022 5:25 AM [employer] Height 144.8 cm (4' 9 ) 01/26/2022 5:25 AM [employer] Body Mass Index 43.28 01/26/2022 5:25 AM [employer] Functional Status Functional Status Response Date of Assess ment Is person deaf or have serious hearing difficult y? No 01/26/2022 Is person blind or have serious difficulty seein g? No 01/26/2022 Does person have serious dif ficulty walking/climbing stairs? Yes 01/26/2022 Does person have difficulty dressing/bathing? No 01/26/2022 Does person have difficulty doing errands alone? No 01/26/2022 Cognitive Status Response Date of Assessm ent Does person have difficulty concentrating/remembering/making decisions? No 01/26/2022 Plan of Treatment Not on file Procedures Procedure Name Priority Date/Time Associated Diagnosis Comments LIPID PROFILE AM Draw 01/27/2022 4:28 AM [employer] from Last 3 Months or Most Recently Relevant to Health Maintenance Results * (ABNORMAL) LIPID PROFILE (01/27/2022 4:28 AM [employer]) Pathologist [facility] Cholesterol 166 <200 mg/dL 01/27/2022 5:17 AM [employer] [facility] Triglycerides 109 <150 mg/dL 01/27/2022 5:17 AM [employer] [facility] HDL Cholesterol 31(L) >40 mg/dL 2 5:17 AM [employer] [facility] LDL Calculated 113 <130 mg/dL 01/27/2022 5:17 AM [employer] [facility] VLDL Calculated 22 <=30 mg/dL 2 5:17 AM [employer] [facility] Chol HDL Ratio 5.4(H) <4.5 01/27/2022 5:17 AM [employer] [facility] LDL/HDL Ratio 3.7 <5.0 01/27/2022 5:17 AM [employer] [facility] Blood BLOOD SPECIMEN / Unknown Venipuncture / Unknown 01/27/2022 4:28 AM [employer] 01/27/2022 4:40 AM [employer] Payam Webb MD LAB - CHEMISTRY [facility] Organization Address City/State/[facility] Co de Phone Number [facility] [address] [place] [address] from Last 3 Months or Most Recently Relevant to Health Maintenance Advance Directives * Full Code (Latest Code Status on File) Date Activated Date Inactivated Comments 01/26/2022 5:49 AM 01/29/2022 1:11 PM * Full Code Date Activated Date Inactivated Comments 05/28/2021 1:45 AM 05/31/2021 4:28 PM
--- OUTSIDE RECORDS SUMMARY | 2024-03-30 07:26 | XMS_ITS | Patient Health Summary ---
Author Organization [facility] Address [address] [place] [address] Care Team Providers Care Senior Accountant Cpa Name Role Phone Unavailable Primary Care Provider Unavailabl e Note from [facility],non-owned Affiliates and Associated Physician Practices is amultiple site organization consisting of ambulatory clinics and hospital sitesin [place], [place], [place] and [place]. This disclosure is being madepursuant to the Care Everywhere program and may not contain all information available regarding this patient. Last updated 17.[facility] Allergies * Adhesive Sensitivity(Other) -Medium Criticality Medications * Be aware that medications may not be up to date on this document. Alwaysverify current medications with the patient. * hydrOXYzine HCl (Atarax) 50 MG tablet(Started 01/28/2022) Take 1 (one) tablet by mouth every 6 hours as needed Reasons: Feeling Anxious 1 refill by 01/28/2023 * hydrOXYzine HCl (Atarax) 10 MG tablet(Started 01/28/2022) Take 1 (one) tablet by mouth 4 times daily Reasons: Feeling Anxious 1 refill by 01/28/2023 * sertraline (Zoloft) 100 MG tablet(Started 01/29/2022) Take 1 (one) tablet by mouth once daily Reasons: Major Depressive Disorder 1 refill by 01/28/2023 * prazosin (Minipress) 1 MG capsule(Started 01/28/2022) Take 1 (one) capsule by mouth at bedtime Reasons: Disturbed Sleep, Frightening Dreams 1 refill by 01/28/2023 * ARIPiprazole (Abilify) 5 MG tablet(Started 01/28/2022) Take 1 (one) tablet by mouth at bedtime Reasons: Mood Disorder 1 refill by 01/28/2023 Active Problems Problem Noted Date Diagnosed Date [...] Comments Blood Pressure 114/101 01/29/2022 8:30 AM [facility] gael se notified Pulse 85 01/29/2022 8:30 AM [employer] Temperature 36.7 ??C (98 ??F) 01/29/2022 8:30 AM [facility] Respiratory Rate 17 01/29/2022 8:30 AM [facility] Oxygen Saturation 98% 01/29/2022 8:30 AM [facility] Inhaled Oxygen Concentration - - Weight 90.7 kg (200 lb) 01/26/2022 5:25 AM [facility] Height 144.8 cm (4' 9 ) 01/26/2022 5:25 AM [employer] Body Mass Index 43.28 01/26/2022 5:25 AM [facility] [employer] Procedures * TSH REFLEX FREE T4(Performed 01/27/2022) * SYPHILIS ANTIBODY CASCADING REFLEX(Performed 01/27/2022) * LIPID PROFILE(Performed 01/27/2022) * HEMOGLOBIN A1C(Performed 01/27/2022) * COMPREHENSIVE METABOLIC PANEL(Performed 01/27/2022) * CBC W AUTO DIFFERENTIAL(Performed 01/27/2022) * URINE DRUG SCREEN IMMUNOASSAY(Performed 01/27/2022) * URINALYSIS REFLEX TO MICROSCOPIC NO CULTURE(Performed 01/27/2022) * HCG URINE QUALITATIVE(Performed 01/27/2022) * BASIC METABOLIC PANEL (CALCIUM TOTAL)(Performed 05/29/2021) * URINALYSIS REFLEX TO MICROSCOPIC NO CULTURE(Performed 05/28/2021) * URINE DRUG SCREEN IMMUNOASSAY(Performed 05/28/2021) * SARS-COV-2 (COVID-19) RAPID(Performed 05/27/2021) * SYPHILIS ANTIBODY CASCADING REFLEX(Performed 05/27/2021) * LIPID PROFILE(Performed 05/27/2021) * HEMOGLOBIN A1C(Performed 05/27/2021) * HCG BLOOD QUALITATIVE(Performed 05/27/2021) * TSH REFLEX FREE T4(Performed 05/27/2021) * ALCOHOL ETHYL BLOOD(Performed 05/27/2021) * COMPREHENSIVE METABOLIC PANEL(Performed 05/27/2021) * CBC W AUTO DIFFERENTIAL(Performed 05/27/2021) * STREP A SCREEN - POINT OF CARE (AMB) STL(Performed 11/24/2018) Performed for Acute upper respiratory infection * STREP A SCREEN - POINT OF CARE (AMB) STL(Performed 04/14/2017) Performed for Strep throat Results * SYPHILIS ANTIBODY CASCADING REFLEX (01/27/2022 4:28 AM [employer]) Only the most recent of2 resultswithin the time period is included. Treponema pallidum Antibody Non Reactive Non Reactive 01/27/2022 5:27 AM [employer] [facility] Comment: No Laboratory evidence of syphilis infection. ?? Note: ??Circulating antibodies may be low or undetectable in early infection. ??If recent exposure is suspected, re-draw sample in 2-4 weeks and repeat testing. Blood BLOOD SPECIMEN / Unknown Venipuncture / Unknown 01/27/2022 4:28 AM [employer] 01/27/2022 4:40 AM [employer] Payam Webb MD LAB - SEROLOGY ORDER DIEUDONNE [facility] [address] [place] [address] * TSH REFLEX FREE T4 (01/27/2022 4:28 AM [employer]) Only the most recent of2 resultswithin the time period is included. TSH 0.837 0.350 - 4.940 uIU/mL 01/27/2022 5:28 AM [employer] [facility] Blood BLOOD SPECIMEN / Unknown Venipuncture / Unknown 01/27/2022 4:28 AM [employer] 01/27/2022 4:40 AM [employer] Payam Webb MD LAB - CHEMISTRY [place]ULI[facility] [address] [place] [address] * HEMOGLOBIN A1C (01/27/2022 4:28 AM [employer]) Only the most recent of2 resultswithin the time period is included. Hemoglobin A1c 5.1 <5.7 % 01/27/2022 5:13 AM [facility] Estimated Average Glucose 100 mg/dL 01/27/2022 5:13 AM [employer] [facility] Blood BLOOD SPECIMEN / Unknown Venipuncture / Unknown 01/27/2022 4:28 AM [employer] 01/27/2022 4:40 AM [employer] Narrative [facility] - 01/27/2022 5:13 AM [employer] HbA1c Interpretation: Normal: < 5.7% Pre-diabetes: 5.7-6.4% Diabetes: Equal to or greater than 6.5% Test results diagnostic of diabetes should be repeated for confirmation. Treatment target values recommended by ADA and other clinical organizations should be used to evaluate metabolic control in patients. This test should not replace glucose testing for patients with Type 1 diabetes, pediatric patients, or women. ??Falsely low HbA1c results may be observed in patients with clinical conditions that shorten erythrocyte life span or decrease mean erythrocyte age such as the presence of unstable hemoglobin variants, elevated hemoglobin F level or other causes of hemolytic anemia. ??HbA1c may not accurately reflect glycemic control when clinical conditions that affect erythrocyte survival are present. ??Severe Iron deficiency anemia may yield falsely high results. ??Hemoglobin A1c assay should not be used to diagnose or monitor diabetes in patients with malignancy, recent blood transfusion, chronic kidney or liver disease. ?? This method may yield falsely low results when hemoglobin (HbF) exceeds 5% in the specimen. The [employer] assay for the measurement of HbA1c is a National Glycohemoglobin Standardization Program (NGSP) certified method. Payam Webb MD LAB - CHEMISTRY [facility] Organization Address City/State/ZIP Co de Phone Number [facility] [address] [place] [address] * (ABNORMAL) CBC W AUTO DIFFERENTIAL (01/27/2022 4:28 AM [employer]) Only the most recent of2 resultswithin the time period is included. WBC 7.9 4.4 - 10.7 x10E9/L 01/27/2022 4:50 AM [employer] [facility] WBC Corrected 01/27/2022 4:50 AM [facility] RBC 4.28 3.80 - 5.20 x10E12/L 01/27/2022 4:50 AM [facility] Hemoglobin 13.0 12.0 - 15.6 gm/dL 01/27/2022 4:50 AM [facility] Hematocrit 39.1 35.9 - 45.5 % 01/27/2022 4:50 AM [facility] MCV 91.4 80.7 - 98.3 fl 01/27/2022 4:50 AM [facility] MCH 30.4 26.7 - 34.0 pg 01/27/2022 4:50 AM [employer] [facility] MCHC 33.2 30.8 - 35.9 gm/dL 01/27/2022 4:50 AM [facility] Platelet Count 340 153 - 416 x10E9/L 01/27/2022 4:50 AM [employer] [facility] RDW-CV 12.4 12.1 - 14.9 % 01/27/2022 4:50 AM [facility] MPV 8.8(L) 9.4 - 12.9 fl 01/27/2022 4:50 AM [facility] Neutrophils % 61.1 44.0 - 73.0 % 01/27/2022 4:50 AM [employer] [facility] Lymphocytes % 29.6 20.0 - 43.0 % 01/27/2022 4:50 AM [facility] Monocytes % 6.1 5.0 - 13.0 % 01/27/2022 4:50 AM [facility] Eosinophils % 2.3 0.0 - 6.0 % 01/27/2022 4:50 AM [facility] Basophils % 0.6 0.0 - 2.0 % 01/27/2022 4:50 AM [facility] Immature Granulocytes 0.3 0 - 1 % 01/27/2022 4:50 AM [facility] Neutrophil Absolute 4.85 2.01 - 7.14 x10E9/L 01/27/2022 4:50 AM [facility] Lymphocytes Absolute 2.35 1.07 - 3.94 x10E9/L 01/27/2022 4:50 AM [facility] Monocytes Absolute 0.48 0.26 - 1.07 x10E9/L 01/27/2022 4:50 AM [facility] Eosinophils Absolute 0.18 0 - 0.47 x10E9/L 01/27/2022 4:50 AM [facility] Basophils Absolute 0.05 0 - 0.08 x10E9/L 01/27/2022 4:50 AM [facility] Immature Granulocytes Absolute 0.02 0.00 - 0.06 x10E9/L 01/27/2022 4:50 AM [facility] nRBC Auto 0 /100 WBC 01/27/2022 4:50 AM [facility] Blood BLOOD SPECIMEN / Unknown Venipuncture / Unknown 01/27/2022 4:28 AM [employer] 01/27/2022 4:40 AM [facility] Payam Webb MD LAB - HEMATOLOGY ORD ERABLES [facility] [address] [place] [address] * (ABNORMAL) COMPREHENSIVE METABOLIC PANEL (01/27/2022 4:28 AM [facility]) Only the most recent of2 resultswithin the time period is included. [facility] Glucose 106(H) 70 - 105 mg/dL 01/27/2022 5:17 AM [facility] Sodium 139 136 - 145 mmol/L 01/27/2022 5:17 AM [facility] Potassium 3.8 3.5 - 5.1 mmol/L 01/27/2022 5:17 AM [facility] Chloride 109(H) 98 - 107 mmol/L 01/27/2022 5:17 AM [facility] CO2 22(L) 23 - 31 mmol/L 01/27/2022 5:17 AM [facility] Calcium 8.9 8.4 - 10.4 mg/dL 01/27/2022 5:17 AM [facility] Anion Gap 8 8 - 18 mmol/L 01/27/2022 5:17 AM [facility] BUN 9 7 - 18.7 mg/dL 01/27/2022 5:17 AM [facility] Creatinine 0.72 0.57 - 1.11 mg/dL 01/27/2022 5:17 AM [facility] Alkaline Phosphatase 89 40 - 150 U/L 01/27/2022 5:17 AM [facility] ALT 12 0 - 61 U/L 01/27/2022 5:17 AM [facility] AST 14 5 - 34 U/L 01/27/2022 5:17 AM [facility] Protein Total 6.5 6.4 - 8.3 gm/dL 01/27/2022 5:17 AM [facility] Albumin 3.6 3.5 - 5.2 gm/dL 01/27/2022 5:17 AM [facility] Bilirubin Total 0.4 0.2 - 1.2 mg/dL 01/27/2022 5:17 AM [facility] eGFR by CKD-EPI >90 >=90 mL/min/1.7 3 m2 01/27/2022 5:17 AM [facility] Blood BLOOD SPECIMEN / Unknown Venipuncture / Unknown 01/27/2022 4:28 AM [employer] 01/27/2022 4:40 AM [facility] Payam Webb MD LAB - CHEMISTRY [facility] Organization Address City/State/ZIP Co de Phone Number [facility] [address] [place] [address] * (ABNORMAL) LIPID PROFILE (01/27/2022 4:28 AM [employer]) Only the most recent of2 resultswithin the time period is included. Cholesterol 166 <200 mg/dL 01/27/2022 5:17 AM [employer] [facility] Triglycerides 109 <150 mg/dL 01/27/2022 5:17 AM [facility] HDL Cholesterol 31(L) >40 mg/dL 2 5:17 AM [employer] [facility] LDL Calculated 113 <130 mg/dL 01/27/2022 5:17 AM [facility] VLDL Calculated 22 <=30 mg/dL 2 5:17 AM [facility] Chol HDL Ratio 5.4(H) <4.5 01/27/2022 5:17 AM [facility] LDL/HDL Ratio 3.7 <5.0 01/27/2022 5:17 AM [facility] Blood BLOOD SPECIMEN / Unknown Venipuncture / Unknown 01/27/2022 4:28 AM [employer] 01/27/2022 4:40 AM [facility] Payam Webb MD LAB - CHEMISTRY [facility] Organization Address City/State/ZIP Co de Phone Number [facility] [address] [place] [address] * URINALYSIS REFLEX TO MICROSCOPIC NO CULTURE (01/27/2022 3:17 AM [employer]) Only the most recent of2 resultswithin the time period is included. Color UA Yellow Straw, Yellow 01/27/2022 3:59 AM [employer] [facility] Clarity UA Clear Clear 01/27/2022 3:59 AM [facility] Glucose UA Negative Negative 01/27/2022 3:59 AM [facility] Bilirubin UA Negative Negative 01/27/2022 3:59 AM [facility] Ketone UA Negative Negative 01/27/2022 3:59 AM [facility] Specific [place] UA 1.017 1.005 - 1.030 01/27/2022 3:59 AM [employer] [facility] Blood UA Negative Negative 01/27/2022 3:59 AM [facility] pH UA 5.0 5.0 - 8.0 pH 01/27/2022 3:59 AM [employer] [facility] Protein UA Negative Negative 01/27/2022 3:59 AM [employer] [facility] Urobilinogen UA Negative Negative mg/dL 01/27/2022 3:59 AM [employer] [facility] Nitrite UA Negative Negative 01/27/2022 3:59 AM [employer] [facility] Leukocyte UA Negative Negative 01/27/2022 3:59 AM [employer] [facility] Urine Microscopy Urine microscopy not indicated 01/27/2022 3:59 AM [employer] [facility] Urine URINE SPECIMEN OBTAINED BY CLEAN CATCH PROCEDURE / Unknown Collection / Unknown 01/27/2022 3:17 AM [employer] 01/27/2022 3:50 AM [employer] Narrative [facility] - 01/27/2022 3:59 AM [employer] Payam Webb MD LAB - URINALYSIS ORD ERABLES Performing Organization Address City/[facility]/ZIP Co de Phone Number [facility] [id number] [place] [phone] * HCG URINE QUALITATIVE (01/27/2022 3:17 AM [employer]) Pathologist [facility] hCG Qualitative Urine Negative Negative 01/27/2022 3:59 AM [employer] [facility] Urine URINE / Unknown Collection / Unknown 01/27/2022 3:17 AM [employer] 01/27/2022 3:50 AM [employer] Payam Webb MD LAB - URINALYSIS ORD ERABLES Performing Organization Address City/[facility]/ZIP Co de Phone Number [facility] [address] [place] [address] * (ABNORMAL) URINE DRUG SCREEN IMMUNOASSAY (01/27/2022 3:17 AM [employer]) Only the most recent of2 resultswithin the time period is included. Pathologist [facility] Amphetamines Screen Urine Not detected Not detected 01/27/2022 4:24 AM [employer] [facility] Barbiturates Screen Urine Not detected Not detected 01/27/2022 4:24 AM [employer] [facility] Benzodiazepines Screen Urine Not detected Not detected 01/27/2022 4:24 AM [employer] [facility] Cannabinoids Screen Urine Detected(A) Not detected 01/27/2022 4:24 AM [facility] Cocaine Screen Urine Not detected Not detected 01/27/2022 4:24 AM [facility] Fentanyl Urine Not detected Not detected 01/27/2022 4:24 AM [facility] Methadone Screen Urine Not detected Not detected 01/27/2022 4:24 AM [facility] Opiate Screen Urine Not detected Not detected 01/27/2022 4:24 AM [facility] Phencyclidine Screen Urine Not detected Not detected 01/27/2022 4:24 AM [facility] Urine URINE / Unknown Collection / Unknown 01/27/2022 3:17 AM [employer] 01/27/2022 3:50 AM [facility] - 01/27/2022 4:24 AM [facility] This drug screen is designed for MEDICAL purposes only. It is not to be used for legal purposes, including but not limited to worker's comp, police investigations, occupational issues, child custody, etc. ??Any positive result is only presumptive and must be confirmed with a separate confirmatory test ordered by the physician. Drug Screening Test Cutoff Values: AMPHETAMINES ?1000 ng/mL BARBITURATES ? 200 ng/mL BENZODIAZEPINES ?200 ng/mL CANNABINOIDS(THC) ?? 50 ng/mL COCAINE ?300 ng/mL FENTANYL ? 1 ng/mL METHADONE ?300 ng/mL OPIATES ?300 ng/mL PHENCYCLIDINE(PCP) ??25 ng/mL Payam Webb MD LAB - URINE CHEMISTR Y ORDERABLES [facility] [address] [place] [address] * (ABNORMAL) BASIC METABOLIC PANEL (CALCIUM TOTAL) (05/29/2021 9:04 PM CDT) Pathologist [facility] Glucose 109(H) 70 - 105 mg/dL 05/29/2021 9:42 PM CDT [facility] Sodium 138 136 - 145 mmol/L 05/29/2021 9:42 PM CDT [facility] Potassium 3.8 3.5 - 5.1 mmol/L 05/29/2021 9:42 PM CDT [facility] Chloride 104 98 - 107 mmol/L 05/29/2021 9:42 PM CDT [facility] CO2 24 23 - 31 mmol/L 05/29/2021 9:42 PM CDT [facility] Calcium 9.7 8.4 - 10.4 mg/dL 05/29/2021 9:42 PM CDT [facility] Anion Gap 10 8 - 18 mmol/L 05/29/2021 9:42 PM CDT [facility] BUN 8 7 - 18.7 mg/dL 05/29/2021 9:42 PM CDT [facility] Creatinine 0.74 0.57 - 1.11 mg/dL 05/29/2021 9:42 PM CDT [facility] eGFR by CKD-EPI >90 >=90 mL/min/1.7 3 m2 05/29/2021 9:42 PM CDT [facility] Blood BLOOD SPECIMEN / Unknown Venipuncture / Unknown 05/29/2021 9:04 PM CDT 05/29/2021 9:19 PM CDT Narrative [facility] - 05/29/2021 9:42 PM CDT eGFR result was calculated using the updated CKD-EPI Creatinine Equations (2020). Prior to go live 2021 the eGFR was calculated using the MDRD calculation. Please note Reference Range change. Joan Berg MD LAB - CHEMISTRY ORD ERABLES [facility] [address] [place] [address] * SARS-COV-2 (COVID-19) RAPID (05/27/2021 11:34 PM CDT) COVID-19 PCR Not detected Not detected 05/29/19 12:30 AM CDT [facility] Microbiology SPECIMEN FROM NASOPHARYNGEAL STRUCTURE / Unknown Collection / Unknown 05/27/2021 11:34 PM CDT 05/27/2021 11:47 PM CDT Narrative [facility] - 05/28/2021 12:30 AM CDT The Cepheid Xpert Xpress SARS-COV-2 has been authorized by the Food and Drug Administration (FDA) under an Emergency Use Authorization (EUA). This test has been validated in accordance with the FDA's guidance document Policy for Diagnostic Testing in Laboratories Certified to perform High Complexity Testing under CLIA prior to Emergency Use Authorization for Coronavirus Disease-2019 during the Public Health Emergency issued on April 27, 2019. FDA independent review of this validation is pending. This test is only authorized for the duration of the time the declaration that circumstances exist justifying the authorization of emergency use of in vitro diagnostic tests for detection of SARS-COV-2 virus and/or diagnosis of COVID-19 infection under 564(b) (1) of the Act. 21 U.S.C. 360bbb-3 (b) (1), unless the authorization is terminated or revoked sooner. Fact Sheets for this EUA assay are available upon request. Candelaria Parra MD LAB - MICROBIOLOGY O ABRIL Performing Organization Address [facility] de Phone Number [facility] [address] [place] [address] * ALCOHOL ETHYL BLOOD (05/27/2021 8:42 PM CDT) Ethanol <10.0 <10 mg/dL 05/27/2021 9:21 PM CDT [facility] Ethanol Calculated <0.010 <=0.100 gm/dL 05/27/2021 9:21 PM CDT [facility] Blood BLOOD SPECIMEN / Unknown Venipuncture / Unknown 05/27/2021 8:42 PM CDT 05/27/2021 9:00 PM CDT Narrative [facility] - 05/27/2021 9:21 PM CDT Non Legal Serum Alcohol Ivelisse Nelson MD LAB - CHEMISTRY [facility] Performing Organization Address [facility] Co de Phone Number [facility] [address] [place], [place] [id number] * HCG BLOOD QUALITATIVE (05/27/2021 8:42 PM CDT) Pathologist [facility] HCG Qual Serum Negative Negative 05/27/2021 9:16 PM CDT [facility] Blood BLOOD SPECIMEN / Unknown Venipuncture / Unknown 05/27/2021 8:42 PM CDT 05/27/2021 9:00 PM CDT Ivelisse Nelson MD LAB - CHEMISTRY [place] [facility] [address] [place] [address] * STREP A SCREEN - POINT OF CARE (AMB) STL (11/24/2018) Only the most recent of2 resultswithin the time period is included. [facility] Strep A Rapid POCT Negative Negative Strep A Internal Control Present Lot # [id number] Expiration Date 02/27/2020 Throat ENTIRE THROAT (SURFACE REGION OF NECK) / Unknown 11/24/2018 Zoila Chand SUPERVISOR ORDER [employer] LAB - POINT O F CARE ORDERABLES
--- OUTSIDE RECORDS SUMMARY | 2024-03-30 07:26 | XMS_ITS | Clinical Summary ---
Author Organization [facility] Address [address] [place] [address] Care Team Providers Care Color Drum Worker Name Role Phone Yuli Yen MD Primary Care Provider + Sapphire Washington RN Unavailable [phone] Allergies Active Allergy Reactions Criticality Noted Date Comments Adhesive Other (See comments) Medium 05/11/2017 IRRITATED SKIN Medications sertraline (ZOLOFT) 100 mg tablet Take 1 tablet (100 mg total) by mouth every evening Active acetaminophen (TYLENOL) 325 mg tablet Take 2 tablets (650 mg total) by mouth every 4 (four) hours as needed for pain 3 Active hydrOXYzine (ATARAX) 50 mg tablet Take 1 tablet (50 mg total) by mouth 4 Active LORazepam (ATIVAN) 1 mg tablet Take 1 tablet (1 mg total) by mouth 2 (two) times a day for 5 doses 5 tablet 4 Active cloBAZam (ONFI) 10 mg tabletIndicatio ns:[place]-Gasta ut Syndrome Treatment Adjunct Take 0.5 tablets (5 mg total) by mouth every morning AND 1 tablet (10 mg total) nightly. 45 tablet 2 4 04/08/19 25 Active OLANZapine (ZyPREXA) 10 mg tablet Take 1 tablet (10 mg total) by mouth nightly 4 Active lamoTRIgine (LaMICtal) 100 mg tablet Take 2.5 tablets (250 mg total) by mouth 2 (two) times a day 450 tablet 4 05/09/19 25 Active safety needles 25 gauge x 5/8 needleIndicatio ns:Gender dysphoria,Hormo ne replacement therapy (HRT) Use to inject testosterone once weekly. 13 each 3 4 Active syringe, disposable, (Easy [place] Luer Lock Syringe) 1 mL syringeIndicati ons:Gender dysphoria,Hormo ne replacement therapy (HRT) Use to draw up and inject testosterone once weekly. 13 each 3 4 Active needle, disp, 18 G 18 gauge x 1 1/2 needleIndicatio ns:Gender dysphoria,Hormo ne replacement therapy (HRT) Use to draw up testosterone once weekly. 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 01/23/2023 Brain lesion 01/16/2023 Dizziness 01/10/2023 Seizure-like activity 12/20/2022 Dizziness and giddiness 12/20/2022 Candidiasis of mouth 11/25/2022 Arthralgia of left knee 09/08/2022 Hyperglycemia 06/29/2022 Depressive disorder 06/21/2021 Generalized anxiety disorder 06/21/2021 MDD (major depressive disord er), recurrent severe, without psychosis 05/28/2021 Class 2 severe obesity due t o excess calories with serious comorbidity in adult 04/03/2020 Precordial pain 04/03/2020 Chronic anxiety 02/17/2020 Left ureteral stone 05/16/2017 Bacteriuria with pyuria 05/04/2017 Calculus of kidney 05/04/2017 Cholelithiasis 05/04/2017 Hydronephrosis, left 05/04/2017 Pyelonephritis 05/04/2017 Knee pain 06/09/2016 Shortness of breath 01/21/2015 Overview (06/02/2016): Acute dyspnea Encounters Date Type Department Care Team Description 03/25/2024 1:04 PM BLOCK CUBER - 03/25/2024 11:59 PM BLOCK CUBER Hospital Encounter [facility] - MRI [address] [facility] [address] [place] [place] [address] Brain tumor (HCC) Discharge Disposition: Discharge to home or self care 03/11/2024 Telephone [facility] Nurse Navigation [address] [place] [address] Sapphire Washington RN Unsuccessful Phone Call 1 01/30/2024 2:00 PM BLOCK CUBER Office Visit [facility] Endocrinology Metabolism and Lipid [address] [facility] 5th [place] [address] [place] [address] Ricardo An MD Gender dysphoria (Primary Dx) from Last 3 Months Immunizations Name Administration Dates Next Due Hep B, Adolescent or Pediatric 11/25/1997,1997 Influenza, Quadrivalent, Flavia l Culture-based MDCK, Preservative Free, Antibiotic Free, Intramuscular 11/19/2022,11/07/2021 Influenza, Quadrivalent, Spl it, Preservative Free, Intramuscular 11/25/2020,05/05/2017 Influenza, Unspecified 05/05/2017 Td, adsorbed 10/20/1997 Surgical History Surgery Date Site/Laterality Comments CHOLECYSTECTOMY KIDNEY STONE SURGERY BRAIN TUMOR EXCISION 02/27/2022 - 02/26/2023 Right Medical History Medical History Date Comments Brain lesion Seizure (HCC) GERD (gastroesophageal reflux disease) Motion sickness Family History Medical History Relation Name Comments Heart disease Father Family history of cardiac disorder - (Added by TW Conv) Anesthesia problems Mother woke up during AICD/Pacemaker surgery Bleeding Disorder Mother Bleeding d isorder - (Added by TW Conv) Cardiomyopathy Mother Heart disease Mother Family history of cardiac disorder - (Added by TW Conv) Kidney disease Mother Family histor y of kidney disease - (Added by TW Conv) Heart disease Other 1 Family history of Heart problems; Kidney disease Other 2 Family histor y of Kidney problems; Mental illness Other 3 Family histor y of Mental illness; Relation Name Status Comments Father Mother Other 1 Other 2 Other 3 Social History Tobacco Use Types Packs/Day Years Used Date Smoking Tobacco: Former Cigarettes Smokeless Tobacco: Never Tobacco Cessation:Counseling Given: Not Answered Alcohol Use Standard Drinks/Week Comments Yes 0 (1 standard drink = 0.6 oz pur e alcohol) AUDIT-C Answer Date Recorded Q1: How often do you have a drink containing alcohol? Never 03/06/2023 Q2: How many drinks containi ng alcohol do you have on a typical day when you are drinking? Patient does not drink Q3: How often do you have si x or more drinks on one occasion? Never 03/06/2023 Personal Safety Answer Date Recorded Have you ever been in or are you currently in a harmful physical or emotional relationship or is someone making you feel afraid or unsafe? Denies 02/09/2023 Comments No Sex and Gender Information Value Date Recorded Sex Assigned at Not on file Legal Sex Female 1:57 AM BLOCK CUBER Gender Identity Genderqueer, neither exclusively Male nor Female 12/19/2022 7:07 AM CDT Sexual Orientation Choose not to disclose 2022 7:07 AM CDT Obstetrics History Last Filed Vital Signs Vital Sign Reading Time Taken Comments Blood Pressure 101/70 01/30/2024 1:42 PM BLOCK CUBER Pulse 98 01/30/2024 1:42 PM BLOCK CUBER Temperature 36.9 ??C (98.4 ??F) 01/30/2024 1:42 PM CS T Respiratory Rate 18 07/22/2023 3:26 PM CDT Oxygen Saturation 98% 07/23/2023 10:20 AM CDT Inhaled Oxygen Concentration - - Weight 104 kg (229 lb 4.8 oz) 01/30/2024 1:42 PM BLOCK CUBER Height 144.8 cm (4' 9 ) 01/30/2024 1:42 PM BLOCK CUBER Body Mass Index 49.62 01/30/2024 1:42 PM BLOCK CUBER Plan of Treatment Health Maintenance Due Date Last Done Comments Breast Cancer Screening-Mammogram 1982 Cervical Cancer Screening 1982 Depression Screening 1982 Hepatitis C Screening 1982 Varicella Vaccines (1 of 2 - 13+ 2-dose series) 04/30/1995 DTaP/Tdap/Td Vaccine (1 - Tdap) 10/21/1997 10/20/1997 Regular Well Visit/Exam 18-64 2000 Covid-19 Vaccine ( season) 2023 11/19/2022, 11/07/2021, 06/05/2021, Additional history exists Influenza Vaccine (#1) 2023 3, 11/07/2021, 11/25/2020, Additional history exists HPV Vaccines Aged Out No longer eligi ble based on patient's age to complete this topic Pneumococcal vaccine <65 Aged Out No longer eligible based on patient's age to complete this topic Medical Devices Implanted Type Area Nuclear Physicist Device Identifier Shelf Expiration Date Model / Serial / Lot Elsie Craniomaxillofacia l Duramatrix-Onlay Plus 7x5in Regeneration Membrane Patch Dural [id number] - [id number] Implanted:Qty: 1 on 02/08/2023 by Art Espinoza MD at [facility] [place] Craniomaxillofacial [id number] 10/27/2025 [id number] / / [id number] Elsie Craniomaxillofacia l [place] Neuro Iii 10mm Tab Craniomaxillofacia l Low Profile [id number] - [id number] Implanted:Qty: 2 on 02/08/2023 by Art Espinoza MD at [facility] Cranial Elsie Craniomaxillofacial [id number] / / Elsie Craniomaxillofacia l [place] Neuro Iii .4mm 2 Hole Low Profile Bar Tab [id number] - [id number] Implanted:Qty: 1 on 02/08/2023 by Art Espinoza MD at [facility] [place] Craniomaxillofacial [id number] / / Elsie Craniomaxillofacia l [place] Neuro 3 1.5mm 4mm Self Drill Axial Stability Screw Bone Latex Free [id number] - [id number] Implanted:Qty: 15 on 02/08/2023 by Art Espinoza MD at [facility] N/A: Cranial [place] Craniomaxillofacial [id number] / / Procedures Procedure Name Priority Date/Time Associated Diagnosis Comments MRI BRAIN W WO CONTRAST Schedule Routine, Read Routine (OP Routine) 03/25/2024 2:59 PM BLOCK CUBER Brain tumor (HCC) from Last 3 Months Results * MRI Brain W WO Contrast (03/25/2024 2:59 PM BLOCK CUBER) Anatomical Region Laterality Modality Head and Neck N/A Magnetic Resonan ce 03/25/2024 5:04 PM BLOCK CUBER Impressions 03/25/2024 5:23 PM BLOCK CUBER 1. ??No residual or recurrent disease in the brain. Dictated by: Julito Maldonado M.D. The radiology attending physician has personally reviewed this study, and had reviewed and/or edited this written report and agrees with it. Electronically signed by: Kimi Hazel M.D. 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 TECHNIQUE: Multiplanar multi-weighted MRI of the brain and brainstem was performed without and with intravenous contrast using the general brain protocol. Contrast information: 20 mL Gadoterate Meglumine COMPARISON: Multiple prior brain MRs, most recently 08/14/2023. FINDINGS: Postsurgical changes of right temporal craniotomy and temporal lobe mass resection. ??There is a small nodular focus of enhancement along the medial temporal lobe along the resection cavity that is unchanged in size and intensity from 08/14/2023. Scattered small patchy and curvilinear foci of T2 prolongation along the resection bed, slightly increased, and in the periventricular and subcortical white matter, are nonenhancing, nonspecific, and may be treatment related. The scalp and calvarium are normal. The superior sagittal sinus demonstrates normal venous flow. The corpus callosum is normal in shape and signal intensity. The posterior fossa is unremarkable. The pituitary and sella are normal. The brainstem and craniocervical junction are unremarkable. Diffusion weighted images reveal no hyperintensities to suggest acute cerebral infarction. The ventricles are normal in size and position without evidence of hydrocephalus. Mucoid secretions in the sphenoid sinuses. The visualized portions of the mastoids are unremarkable. The orbits appear normal. Normal flow voids are demonstrated in the carotid arteries and basilar artery. 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 TECHNIQUE: Multiplanar multi-weighted MRI of the brain and brainstem was performed without and with intravenous contrast using the general brain protocol. Contrast information: 20 mL Gadoterate Meglumine COMPARISON: Multiple prior brain MRs, most recently 08/14/2023. FINDINGS: Postsurgical changes of right temporal craniotomy and temporal lobe mass resection. There is a small nodular focus of enhancement along the medial temporal lobe along the resection cavity that is unchanged in size and intensity from 08/14/2023. Scattered small patchy and curvilinear foci of T2 prolongation along the resection bed, slightly increased, and in the periventricular and subcortical white matter, are nonenhancing, nonspecific, and may be treatment related. The scalp and calvarium are normal. The superior sagittal sinus demonstrates normal venous flow. The corpus callosum is normal in shape and signal intensity. The posterior fossa is unremarkable. The pituitary and sella are normal. The brainstem and craniocervical junction are unremarkable. Diffusion weighted images reveal no hyperintensities to suggest acute cerebral infarction. The ventricles are normal in size and position without evidence of hydrocephalus. Mucoid secretions in the sphenoid sinuses. The visualized portions of the mastoids are unremarkable. The orbits appear normal. Normal flow voids are demonstrated in the carotid arteries and basilar artery. IMPRESSION: 1. No residual or recurrent disease in the brain. Dictated by: Julito Maldonado M.D. The radiology attending physician has personally reviewed this study, and had reviewed and/or edited this written report and agrees with it. Electronically signed by: Kimi Hazel M.D. Art Espinoza MD [facility] [place] PROCEDURES Final Re sult from Last 3 Months Insurance [employer] BLUE ACCESS OOS Pressly OOS [employer] Advance Directives For more information, please contact: [phone] * Full Code (Latest Code Status on File) Date Activated Date Inactivated Comments 07/18/2023 8:23 AM 07/23/2023 7:00 PM * Full Code Date Activated Date Inactivated Comments 02/08/2023 5:57 PM 02/10/2023 2:48 PM * Full Code Date Activated Date Inactivated Comments 01/10/2023 11:36 PM 01/11/2023 11:35 PM Care Teams Color Drum Worker Relationship Specialty Start Date End Date Yuli Yen MD [address] [place] [address] [place] [id number] PCP - General Family Medicine 04/04/22 Sapphire Washington, RN [address] [place] [address] Nurse Navigator 09/07/23
--- OUTSIDE RECORDS SUMMARY | 2024-03-30 07:26 | XMS_ITS | Referral Summary ---
Author Organization [facility] Address [address] [place] [address] Care Team Providers Care Airframe Technician Name Role Phone Yuli Yen MD Primary Care Provider + Sapphire Washington RN Unavailable [phone] Encounters Date Type Department Care Team Description 03/25/2024 1:04 PM MOLD UNLOADER - 03/25/2024 11:59 PM MOLD UNLOADER Hospital Encounter [facility] - MRI [address] [facility] [address] [place] [address] Brain tumor (HCC) Discharge Disposition: Discharge to home or self care 03/11/2024 Telephone [facility] Neuroscience Nurse Navigation [address] [place] [address] Sapphire Washington, JUAN CARLOS Unsuccessful Phone Call 1 01/30/2024 2:00 PM MOLD UNLOADER Office Visit [facility] Endocrinology Metabolism and Lipid [address] [facility] 5th [place] [address] [place] [address] Ricardo An MD Gender dysphoria (Primary Dx) from Last 3 Months Allergies Active Allergy Reactions Criticality Noted Date [...] 4 Active cloBAZam (ONFI) 10 mg tabletIndicatio ns:[place]-Gasta ut Syndrome Treatment Adjunct Take 0.5 tablets [...] each 3 4 Active syringe, disposable, (Easy [place] Luer Lock Syringe) 1 mL syringeIndicati ons:Gender [...] of breath 01/21/2015 Overview (06/02/2016): Acute dyspnea Immunizations Name Administration Dates Next Due Hep B, Adolescent or Pediatric 11/25/1997,1997 Influenza, Quadrivalent, Flavia l Culture-based MDCK, Preservative Free, Antibiotic Free, Intramuscular 11/19/2022,11/07/2021 Influenza, Quadrivalent, Spl it, Preservative Free, Intramuscular 11/25/2020,05/05/2017 Influenza, Unspecified 05/05/2017 Td, adsorbed 10/20/1997 Social History Tobacco Use Types Packs/Day Years [...] on file Legal Sex Female 1:57 AM MOLD UNLOADER Gender Identity Genderqueer, neither exclusively Male nor Female 12/19/2022 7:07 AM CDT Sexual Orientation Choose not to disclose 2022 7:07 AM CDT Last Filed Vital Signs Vital Sign Reading Time Taken Comments Blood Pressure 101/70 01/30/2024 1:42 PM MOLD UNLOADER Pulse 98 01/30/2024 1:42 PM MOLD UNLOADER Temperature 36.9 ??C (98.4 ??F) 01/30/2024 1:42 PM CS T Respiratory Rate 18 07/22/2023 3:26 PM CDT Oxygen Saturation 98% 07/23/2023 10:20 AM CDT Inhaled Oxygen Concentration - - Weight 104 kg (229 lb 4.8 oz) 01/30/2024 1:42 PM MOLD UNLOADER Height 144.8 cm (4' 9 ) 01/30/2024 1:42 PM MOLD UNLOADER Body Mass Index 49.62 01/30/2024 1:42 PM MOLD UNLOADER Plan of Treatment Not on file Medical Devices Implanted Type Area Acquisition Analyst Device Identifier Shelf Expiration Date Model / Serial / Lot [place] Craniomaxillofacia l Duramatrix-Onlay Plus 7x5in Regeneration Membrane Patch Dural [id number] - [id number] Implanted:Qty: 1 on 02/08/2023 by Art Espinoza MD at [facility] Brain Elsie Craniomaxillofacial [id number] 10/27/2025 [id number] / / [id number] [place] Craniomaxillofacia l [place] Neuro Iii 10mm Tab Craniomaxillofacia l Low Profile [id number] - [id number] Implanted:Qty: 2 on 02/08/2023 by Art Espinoaz MD at [facility] Cranial Elsie Craniomaxillofacial [id number] / / Elsie Craniomaxillofacia l [place] Neuro Iii .4mm 2 Hole Low Profile Bar Tab [id number] - [id number] Implanted:Qty: 1 on 02/08/2023 by Art Espinoza MD at [facility] Cranial [place] Craniomaxillofacial [id number] / / [place] Craniomaxillofacia l [place] Neuro 3 1.5mm 4mm Self Drill Axial Stability Screw Bone Latex Free [id number] - [id number] Implanted:Qty: 15 on 02/08/2023 by Art Espinoza MD at [facility] N/A: Cranial [place] Craniomaxillofacial [id number] / / Procedures Procedure Name Priority Date/Time Associated Diagnosis Comments MRI BRAIN W WO CONTRAST Schedule Routine, Read Routine (OP Routine) 03/25/2024 2:59 PM MOLD UNLOADER Brain tumor (HCC) from Last 3 Months Results * MRI Brain W WO Contrast (03/25/2024 2:59 PM MOLD UNLOADER) Anatomical Region Laterality Modality Head and Neck N/A Magnetic Resonan ce 03/25/2024 5:04 PM MOLD UNLOADER Impressions 03/25/2024 5:23 PM MOLD UNLOADER 1. ??No residual or recurrent disease in the brain. Dictated by: Julito Maldonado M.D. The radiology attending physician has personally reviewed this study, and had reviewed and/or edited this written report and agrees with it. Electronically signed by: Kimi Hazel M.D. Narrative 03/25/2024 5:23 PM MOLD UNLOADER EXAMINATION: Magnetic resonance imaging (MRI) of the [...] by: Kimi Hazel M.D. Art Espinoza MD IM MRI PROCEDURES Final Re sult from Last 3 Months Insurance [employer] ALLEGIANCE BLUE ACCESS OOS [employer] ACCESS OOS [employer]LE[employer] Advance Directives For more information, please contact: [phone] * Full Code (Latest Code Status on File) Date Activated Date Inactivated Comments 07/18/2023 8:23 AM 07/23/2023 7:00 PM * Full Code Date Activated Date Inactivated Comments 02/08/2023 5:57 PM 02/10/2023 2:48 PM * Full Code Date Activated Date Inactivated Comments 01/10/2023 11:36 PM 01/11/2023 11:35 PM Care Teams Airframe Technician Relationship Specialty Start Date End Date Yuli Yen MD [address] [address] PCP - General Family Medicine 04/04/22 Sapphire Washington, JUAN CARLOS [address] [place] [address] Nurse Navigator 09/07/23
--- OUTSIDE RECORDS SUMMARY | 2024-03-30 07:27 | XMS_ITS | Data Portability ---
Author Organization [facility] [place], Main Office Address [address] [place] [address] Assessment No assessment recorded. Plan of Treatment Reminders Order Date Submit Date Provider Last Modified By Organization Details Last Modified Time Details Appointments None recorded. Lab urinalysis , dipstick 2023 024 [facility] [address], [place], [address], 4 16:37:23 CBC w/ auto diff 2024 025 [facility] (Lab), [address] [place] [address], [address], 5 07:50:33 CMP, serum or plasma 2024 025 [facility] (Lab), [address] [place] [address], [address], 5 07:50:32 TSH + free T4, serum 2024 025 [facility] (Lab), [address] [place] [address], [address], 5 07:50:33 urinalysis , complete 2024 025 [facility] (Lab), [address] [place] [address], [address], 5 07:50:33 lipid panel, serum 2024 025 [facility] (Lab), [address] [place] [address], [place], [address], 5 07:50:33 HbA1c (hemoglobi n A1c), blood 2024 025 [facility] (Lab), [address], [place], [address], 5 07:50:33 hepatitis C virus Ab, serum 2024 025 [facility] (Lab), [address] [place], [address], 5 07:45:30 Referral orthopedic surgeon referral - Please call patient to schedule an appointmen t. Thank you. 2023 024 [email or web address] [facility], [address] [place] [address], [address], 4 10:29:03 Procedures None recorded. Surgeries None recorded. Imaging US, thyroid - 1 year follow up, please call to schedule 2023 [email or web address] [place] [address] Imaging Center, [address], [place], [address], 4 10:57:12 XR, calcaneus, 2 or more view 2023 [email or web address] [place] [address] Imaging Center, [address], [place], [address], 4 09:26:54 Medication Orders Chantix Starting Month Box 0.5 mg (11)-1 mg (42) tablets in dose pack 2023 024 [email or web address] [id number], [address] [place], [address], 4 16:55:50 Chantix Continuing Month Box 1 mg tablet 2023 024 [email or web address] [id number], [address] [place], [address], 4 16:55:46 Cholestyra mine Light 4 gram oral powder 2023 024 [id number] [address] [place], [address], 4 16:52:26 oxybutynin chloride ER 5 mg tablet,ext ended release 24 hr 2023 024 [email or web address] [id number] [address] [place], [address], 5 10:05:52 Bactrim DS 800 mg-160 mg tablet 2024 025 [id number] [address] [place], [address], 10:44:30 Patient TargetsNo targets recorded. Patient Instructions Encounter Date Encounter Id Patient Instructions Last Modified By Organization Details Last Modified Time 03/27/2024 [id number] Follow up in 6 months and as needed Obtain labs Tests: Referral: Recommend: [email or web address] Not available 03/27/2024 10:42:35 Reason for Referral Orthopedic Surgeon Referral for Pain of left knee joint Left knee pain, discuss surgery Please call patient to schedule an appointment. Thank you. Referring Physician: Rishi Leach, Family Medicine, Encounter Date: 11/22/2023 Results Created Date Observation Date Name Description Value Unit Range Abnormal Flag Note LastModifiedBy Organization Detail LastModifiedTime 11/22/1911/22/2023 urina lysis , dipst ick Leukocytes (reference range: negative colby/? ? ?l) Negati ve Not Available [address], [place], [address], 11/22/2023 16:06:35 11/22/1911/22/2023 urina lysis , dipst ick Nitrite (reference rage: negative mg/dl) negati ve Not Available [address], [place], [address], 11/22/2023 16:06:35 11/22/19 24 11/22/2023 urina lysis , dipst ick Urobilinogen (reference range: 0.2-1 mg/dl) 0.2 Not Available [address], [place], [address], 11/22/2023 16:06:35 11/22/19 24 11/22/2023 urina lysis , dipst ick Protein (reference range: negative mg/dl) Small Not Available [address], [place], [address], 11/22/2023 16:06:35 11/22/19 24 11/22/2023 urina lysis , dipst ick pH (reference range: 5-7) 5.5 Not Available [address], [place], [address], 11/22/2023 16:06:35 11/22/19 24 11/22/2023 urina lysis , dipst ick Blood (reference range: negative Osman/? ? ?l) Negati ve Not Available [address], [place], [address], 11/22/2023 16:06:35 11/22/19 24 11/22/2023 urina lysis , dipst ick Specific Buhler (reference range: 1.005-1.030) 1.030 Not Available [address], [place], [address], 11/22/2023 16:06:35 11/22/19 24 11/22/2023 urina lysis , dipst ick Ketone (reference range: negative mg/dl) Negati ve Not Available [address], [place], [address], 11/22/2023 16:06:35 11/22/19 24 11/22/2023 urina lysis , dipst ick Bilirubin (reference range: negative mg/dl) Negati ve Not Available [address], [place], [address], 11/22/2023 16:06:35 11/22/19 24 11/22/2023 urina lysis , dipst ick Glucose (reference range: negative mg/dl) Negati ve Not Available [address], [place], [address], 11/22/2023 16:06:35 11/22/19 24 11/22/2023 urina lysis , dipst ick Appearance Clear Not Available [address], [place], [address], 11/22/2023 16:06:35 11/22/19 24 11/22/2023 urina lysis , dipst ick Color Dark Yellow Not Available [address], [place], [address], 11/22/2023 16:06:35 04/11/19 24 04/10/2023 fine needl e aspir ation , ultra sound guide d, thyro id (PROC ) No observ ation record ed. [email or web address] [facility] [address], [place], [address], 07/09/2023 12:41:08 04/12/19 24 04/11/2023 MRI, brain , w/wo contr ast No observ ation record ed. [email or web address] [facility] [address], [place], [address], 04/12/2023 12:06:55 05/21/19 24 05/20/2023 CT, abdom en + pelvi s, w/ contr ast No observ ation record ed. [email or web address] [place] [address], [place], [address], 07/14/2023 14:24:16 05/25/19 24 05/25/2023 XR, pyelo gram No observ ation record ed. [email or web address] [place] [id number] [facility] [address], [place], [address], 07/14/2023 14:24:34 08/15/19 24 08/14/2023 MRI, brain + brain stem, w/wo contr ast No observ ation record ed. [email or web address] [place] [id number] [facility] [address], [place], [address], 08/22/2023 09:31:12 09/06/19 24 09/06/2023 XR, calca neus, 2 or more view No observ ation record ed. [email or web address] [facility] [address], [place], [address], 09/07/2023 12:05:01 Result Notes None recorded. Problems Name Problem SNOMED Code Status Onset Date Resolution Date Notes Provider Name and Address Organization Details Recorded Time Chronic anxiety 632292040 Active 2019 Margarita Jones APRN [address], [place], [address] , [employer] 4 17:22:44 Generalize d anxiety disorder 31477886 Active 2021 Not Available [employer] 4 20:54:58 Depressive disorder 58616138 Active 2021 Margarita Jones APRN [address], [place], [address] , [employer] 4 17:22:48 Posttrauma tic stress disorder 20675566 Active 2021 Margarita Jones APRN [address], [place], [address] , [employer] 4 17:23:18 Kidney stone 06614752 Active 2019 Not Available [facility] 4 20:54:59 Adult health examinatio n Active 2022 Not Available [facility] 4 20:54:58 Hyperglyce noemi 73549054 Active 2022 Margarita Jones APRN [address], [place], [address] , [employer] [facility] 4 17:23:06 Dizziness 049734666 Active 2022 Margarita Jones APRN [address], [place], [address] , [employer] [facility] 4 17:22:52 Pain of left knee joint 7962822100158 07 Active 2022 Not Available [facility] 4 20:54:58 Candidiasi s of mouth 83810613 Active 2022 Not Available [facility] 4 20:54:58 Thyroid nodule 725292124 Active 2022 Not Available [facility] 4 20:54:58 Mass of thyroid gland 602356985 Active 2022 Margarita Jones APRN [address], [place], [address] , [employer] [facility] 4 17:23:09 Nicotine dependence 78507569 Active 2023 Margarita Jones APRN [address], [place], [address] , [employer] [facility] 4 17:23:15 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 Not Available [facility] 4 20:54:59 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 Margarita Jones APRN [address], [place], [address] , [employer] [facility] 4 17:22:57 Cough 75134226 Active 2023 Yuli Yen MD [address], [place], [address] , [employer] 4 17:34:14 Goiter 3674188 Active 2023 Margarita Jones APRN [address], [place], [address] , [employer] 4 17:22:59 Seizure 24383191 Active 2023 Margarita Jones APRN [address], [place], [address] , [employer] 4 17:23:21 Pain of left heel 4381600368540 109 Active 2023 PROSPER Crisostomo [address], [place], [address] , [employer] 4 16:20:04 Urge incontinen ce of urine 14641993 Active 2023 Margarita Jones APRN [address], [place], [address] , [employer] 4 17:23:28 Dysuria 67560401 Active 2023 PROSPER Crisostomo [address], [place], [address] , [employer] 4 16:06:31 Acute urinary tract infection 290654672 Active 2024 Margarita Jones APRN [address], [place], [address] , [employer] 5 10:40:13 Problem Notes None recorded. Procedures Surgical History Date Name Laterality Status Provider Name and Address Organization Details Recorded Time 09/09/19 Cortisone Injection (Dequervains/ Greater Trochantric/ Lateral Epicondylitis/ Shoulder/ Subacromial Space/ Knee or Trigger Finger) completed Yuli Yen MD [address], [place], [address], [facility] 09/26/2022 08:57:06 05/05/19 21 Cholecystectomy completed Not Available [facility] 04/27/2022 22:23:26 open stone operation on kidney or renal pelvis completed Not Available [facility] 04/27/2022 22:23:26 Imaging Results Imaging Date Name Status LastModified by Organiz ation Details LastModified Time 04/10/2023 fine needle aspiration, ultrasound guided, thyroid (PROC) completed [address], [address], 07/09/2023 12:41:08 04/11/2023 MRI, brain, w/wo contrast completed [address], [address], 04/12/2023 12:06:55 05/20/2023 CT, abdomen + pelvis, w/ contrast completed [address] [facility], [place], [address], 07/14/2023 14:24:16 05/25/2023 XR, pyelogram completed [address], [address], 07/14/2023 14:24:34 08/14/2023 MRI, brain + brain stem, w/wo contrast completed [address] [place] [address], [address], 08/22/2023 09:31:12 09/06/2023 XR, calcaneus, 2 or more view completed [email or web address] [facility] [address], [place], [address], 09/07/2023 12:05:01 Procedure Notes None recorded. Medical Equipment None Reported. Allergies Allergen ID Allergen Name Allergen Category Reaction Reaction Severity Criticality Documentation Date Start Date Code Code System Note Provider Name and Address Organization Details Recorded Time 55664 adhesive tape environme nt,medica tion rash severe Not available 04/27/2022 08194 UNK Not Available [facility] 3 22:24:14 Medications Name Sig Start Date Stop Date Status Note LastModified by Organization Details LastModified Time buspirone 5 mg tablet TK 1 T PO BID active Not Available Not Available No t Available nystatin 100,000 unit/mL oral suspension TAKE 5 MILLILITE RS BY MOUTH 4 TIMES A DAY 03/14 completed Not Available Not Available Not Available clonidine HCl 0.1 mg tablet TAKE ONE T PO QHS PRN 02/17 completed Not Available Not Available Not Available doxycycline hyclate 100 mg capsule TAKE 1 CAPSULE BY MOUTH TWICE A DAY FOR 7 DAYS 05/07 completed Not Available Not Available Not Available trazodone 50 mg tablet TAKE 1 TABLET BY MOUTH AT BEDTIME NEEDED 11/25 completed Not Available Not Available Not Available fluconazole 150 mg tablet 1 po x 1 active Not Available Not Available Not Available levetiracet am 500 mg tablet TAKE 1 TABLET BY MOUTH TWICE A DAY 05/07 completed Not Available Not Available Not Available hydrocodone 5 mg-acetamin ophen 325 mg tablet TAKE 1 TO 2 TABLETS BY MOUTH EVERY 6 HOURS NEEDED 03/27 completed Not Available Not Available Not Available prazosin 1 mg capsule TAKE 1 CAPSULE EVERY NIGHT AT BEDTIME 06/29 completed Not Available Not Available Not Available senna 8.6 mg tablet 03/14 completed Not Available Not Available Not Available clonazepam 0.5 mg tablet 06/29 completed Not Available Not Available Not Available sertraline 100 mg tablet TAKE 1 TABLET BY MOUTH EVERY DAY active Not Available Not Available No t Available olanzapine 5 mg tablet TAKE 1 TABLET BY MOUTH EVERYDAY AT BEDTIME 03/27 completed Not Available Not Available Not Available phentermine 15 mg capsule Take 1 capsule every day by oral route. 03/08 completed Not Available Not Available Not Available olanzapine 10 mg tablet TAKE 1 TABLET BY MOUTH EVERYDAY AT BEDTIME 03/27 completed Not Available Not Available Not Available hydroxyzine HCl 50 mg tablet TAKE 1 TABLET BY MOUTH UP TO 3 TIMES DAILY MAX NEEDED FOR ANXIETY 03/27 completed Not Available Not Available Not Available omeprazole 40 mg capsule,del ayed release Take 1 capsule every day by oral route. 06/29 completed Not Available Not Available Not Available tramadol 50 mg tablet Take 1 tablet every 6 hours by oral route as needed for 10 days. active Not Available Not Available No t Available quetiapine 100 mg tablet 03/27 completed Not Available Not Available Not Available lamotrigine 25 mg tablet PLEASE SEE ATTACHED FOR DETAILED DIRECTION S 05/07 completed Not Available Not Available Not Available oxycodone-a cetaminophe n 5 mg-325 mg tablet 11/25 completed Not Available Not Available Not Available lidocaine 1 %-epinephri ne 1:100,000 injection solution Take 2 mL by injection route for 1 day. 06/29 completed Not Available Not Available Not Available BD Regular Bevel [place] 18 gauge x 1 active Not Available Not Available N ot Available famotidine 20 mg tablet qhs 03/27 completed Not Available Not Available Not Available methocarbam ol 750 mg tablet 03/27 completed Not Available Not Available Not Available tamsulosin 0.4 mg capsule 0.4 MG ORALLY DAILY 03/27 completed Not Available Not Available Not Available Xylocaine 10 mg/mL (1 %) injection solution 2 ml injected left knee 11/25 completed Not Available Not Available Not Available dexamethaso ne 1 mg tablet 03/14 completed Not Available Not Available Not Available triamcinolo ne acetonide 40 mg/mL suspension for injection 2 ml left knee x 1 03/14 completed Not Available Not Available Not Available bisacodyl 10 mg rectal suppository Insert 1 supposito ry every day by rectal route as needed. active Not Available Not Available No t Available cephalexin 500 mg capsule TAKE 1 CAPSULE (500 MG) BY MOUTH EVERY 12 HOURS FOR 7 DAYS 03/14 completed Not Available Not Available Not Available buspirone 10 mg tablet TK 1 T PO BID active Not Available Not Available No t Available oxybutynin chloride ER 5 mg tablet,exte nded release 24 hr TAKE 1 TABLET BY MOUTH EVERY DAY 03/27 completed Not Available Not Available Not Available magnesium citrate oral solution 1/2 bottle po qday prn constipat ion active Not Available Not Available No t Available mupirocin 2 % topical ointment APPLY TO NARES TWICE A DAY FOR 5 DAYS PRIOR TO SURGERY ENDING EVENING PRIOR TO SURGERY. 03/14 completed Not Available Not Available Not Available lorazepam 1 mg tablet TAKE 1 TABLET BY MOUTH TWICE A DAY FOR 5 DOSES 03/27 completed Not Available Not Available Not Available testosteron e cypionate 200 mg/mL intramuscul ar oil active Not Available Not Available Not Available SSD 1 % topical cream APPLY TO THE AFFECTED AREA TWICE DAILY active Not Available Not Available No t Available hydroxyzine HCl 10 mg tablet TAKE 1 (ONE) TABLET BY MOUTH 4 TIMES DAILY 06/29 completed Not Available Not Available Not Available ondansetron 4 mg disintegrat ing tablet 4 MG ORALLY EVERY 8 HOURS NEEDED FOR NAUSEA AND VOMITING 03/27 completed Not Available Not Available Not Available sertraline 50 mg tablet TK 1 T PO D active Not Available Not Available No t Available risperidone 1 mg tablet TK 1 T PO HS active Not Available Not Available No t Available lamotrigine 100 mg tablet TAKE 2.5 TABLETS (250 MG TOTAL) BY MOUTH 2 (TWO) TIMES A DAY active Not Available Not Available No t Available risperidone 0.5 mg tablet TK 1 T PO BID 02/17 completed Not Available Not Available Not Available amoxicillin 875 mg-potassiu m clavulanate 125 mg tablet Take 1 tablet every 12 hours by oral route for 7 days. active Not Available Not Available No t Available oxycodone 5 mg tablet 03/14 completed Not Available Not Available Not Available Bactrim DS 800 mg-160 mg tablet Take 1 tablet every 12 hours by oral route as directed for 7 days. 2024 active Not Available Not Available Not Avai lable azithromyci n 500 mg tablet TK 1 T PO D FOR URINARY 02/17 completed Not Available Not Available Not Available divalproex ER 250 mg tablet,exte nded release 24 hr TAKE 1 TABLET BY MOUTH EACH NIGHT FOR 3 DAYS, THEN 2 TABLETS AT BEDTIME 06/29 completed Not Available Not Available Not Available aripiprazol e 5 mg tablet TAKE 1 TABLET BY MOUTH EVERY DAY 06/29 completed Not Available Not Available Not Available nitrofurant oin monohydrate /macrocryst als 100 mg capsule Take 1 capsule every 12 hours by oral route for 7 days. 06/29 completed Not Available Not Available Not Available BD SafetyGlide Needle 25 gauge x 5/8 active Not Available Not Available Not Available zolpidem ER 12.5 mg tablet,exte nded release,mul tiphase TAKE 1 TABLET BY MOUTH EVERYDAY AT BEDTIME 06/29 completed Not Available Not Available Not Available levetiracet am 1,000 mg tablet TAKE 1 TABLET BY MOUTH TWICE A DAY 05/07 completed Not Available Not Available Not Available lidocaine (PF) 10 mg/mL (1 %) injection solution 2 ml injected left knee x 1 03/14 completed Not Available Not Available Not Available varenicline tartrate 1 mg tablet TAKE 1 TABLET BY MOUTH TWICE A DAY active Not Available Not Available No t Available varenicline tartrate 0.5 mg (11)-1 mg (42) tablets in a dose pack TAKE DIRECTED 05/07 completed Not Available Not Available Not Available aripiprazol e 2 mg tablet TAKE 1 TABLET BY MOUTH AT BEDTIME 06/29 completed Not Available Not Available Not Available BD Luer-Kaycee Syringe 1 mL active Not Available Not Available Not Available BD Luer-Kaycee Syringe 1 mL 20 gauge x 1 active Not Available Not Available Not Available Cholestyram ine Light 4 gram oral powder TAKE 1 SCOOP 3 TIMES A DAY BY ORAL ROUTE NEEDED. active Not Available Not Available No t Available clobazam 10 mg tablet TAKE 0.5 TABLETS BY MOUTH 2 TIMES A DAY. active Not Available Not Available No t Available Vitals Date Recorded Body height Provider Name an d Address Organization Details Last Updated DateTime 03/14/2023 144.78 cm JUAN CARLOS Santos [facility] [employer] 03/14/2023 16:09:51 Date Recorded Body mass index (BMI) Body weight Provider Name and Address Organization Details Last Updated DateTime 03/14/2023 51.7 kg/m2 815151.58 g JUAN CARLOS Santos [employer] 03/14/2023 16:11:03 Date Recorded Body temperature Provider Name a nd Address Organization Details Last Updated DateTime 03/14/2023 98.8 [degF] JUAN CARLOS Santos [employer] [facility] 03/14/2023 16:11:32 Date Recorded Heart rate Provider Name an d Address Organization Details Last Updated DateTime 03/14/2023 108 /min JUAN CARLOS Santos [facility] 03/14/2023 16:11:35 Date Recorded Oxygen saturation Oxygen saturation in Arterial blood by Pulse oximetry Provider Name and Address Organization Details Last Updated DateTime 03/14/2023 98 % 98 % JUAN CARLOS Santos [employer] [facility] 03/14/2023 16:11:45 Date Recorded Body height Provider Name an d Address Organization Details Last Updated DateTime 05/08/2023 144.78 cm JUAN CARLOS [employer] 05/08/2023 16:31:35 Date Recorded Body mass index (BMI) Body weight Provider Name and Address Organization Details Last Updated DateTime 05/08/2023 50.9 kg/m2 140944.21 g JUAN CARLOS Santos [facility] 05/08/2023 16:32:47 Date Recorded Body temperature Provider Name a nd Address Organization Details Last Updated DateTime 05/08/2023 98.2 [degF] JUAN CARLOS Santos [facility] 05/08/2023 16:33:58 Date Recorded Heart rate Provider Name an d Address Organization Details Last Updated DateTime 05/08/2023 90 /min JUAN CARLOS Santos [employer] 05/08/2023 16:34:10 Date Recorded Oxygen saturation Oxygen saturation in Arterial blood by Pulse oximetry Provider Name and Address Organization Details Last Updated DateTime 05/08/2023 98 % 98 % JUAN CARLOS Santos [facility] 05/08/2023 16:34:12 Date Recorded Body height Provider Name an d Address Organization Details Last Updated DateTime 08/03/2023 144.78 cm JUAN CARLOS Serna [facility] 08/03/2023 16:04:50 Date Recorded Body mass index (BMI) Body weight Provider Name and Address Organization Details Last Updated DateTime 08/03/2023 48.7 kg/m2 870602.28 g JUAN CARLOS Serna [employer] [facility] 08/03/2023 16:07:02 Date Recorded Body temperature Provider Name a nd Address Organization Details Last Updated DateTime 08/03/2023 100.4 [degF] JUAN CARLOS Serna [facility] 08/03/2023 16:09:06 Date Recorded Heart rate Provider Name an d Address Organization Details Last Updated DateTime 08/03/2023 90 /min JUAN CARLOS Serna [facility] 08/03/2023 16:09:19 Date Recorded Oxygen saturation Oxygen saturation in Arterial blood by Pulse oximetry Provider Name and Address Organization Details Last Updated DateTime 08/03/2023 97 % 97 % JUAN CARLOS Serna [facility] [employer] [facility] 08/03/2023 16:09:21 Date Recorded Body height Provider Name an d Address Organization Details Last Updated DateTime 11/22/2023 144.78 cm JUAN CARLOS Serna [facility] 11/22/2023 15:55:33 Date Recorded Body mass index (BMI) Body weight Provider Name and Address Organization Details Last Updated DateTime 11/22/2023 48 kg/m2 690849.51 g JUAN CARLOS Serna [facility] [employer] [facility] 11/22/2023 15:58:44 Date Recorded Body temperature Provider Name a nd Address Organization Details Last Updated DateTime 11/22/2023 98.6 [degF] JUAN CARLOS Serna [facility] 11/22/2023 15:59:16 Date Recorded Heart rate Provider Name an d Address Organization Details Last Updated DateTime 11/22/2023 88 /min JUAN CARLOS Serna [facility] 11/22/2023 15:59:24 Date Recorded Oxygen saturation Oxygen saturation in Arterial blood by Pulse oximetry Provider Name and Address Organization Details Last Updated DateTime 11/22/2023 97 % 97 % JUAN CARLOS Serna [facility] [employer] [facility] 11/22/2023 15:59:26 Date Recorded Body height Provider Name an d Address Organization Details Last Updated DateTime 03/27/2024 144.78 cm FARZANA Whitney [facility] [employer] [facility] 03/27/2024 09:59:32 Date Recorded Body mass index (BMI) Body weight Provider Name and Address Organization Details Last Updated DateTime 03/27/2024 46.7 kg/m2 73533.95 g FARZANA Whitney [facility] [employer] 03/27/2024 10:01:11 Date Recorded Body temperature Provider Name a nd Address Organization Details Last Updated DateTime 03/27/2024 99.1 [degF] Nisa Cote MA H[facility] [employer] [facility] 03/27/2024 10:03:31 Date Recorded Heart rate Provider Name an d Address Organization Details Last Updated DateTime 03/27/2024 68 /min Nisa Cote MA Busy [employer]os [employer] 03/27/2024 10:03:42 Date Recorded Oxygen saturation Oxygen saturation in Arterial blood by Pulse oximetry Provider Name and Address Organization Details Last Updated DateTime 03/27/2024 100 % 100 % Nisa Cote MA [employer] 03/27/2024 10:03:48 Date Recorded Pain severity - 0-10 verbal numeric rating [Score] - Reported Provider Name and Address Organization Details Last Updated DateTime 03/27/2024 0 Nisa Cote MA Social [employer] 03/27/2024 10:03:58 Date Recorded Systolic blood pressure Diastolic blood pressure Provider Name and Address Organization Details Last Updated DateTime 03/14/2023 134 mm[Hg] 76 mm[Hg] Moriah Schofield RN [place] [employer] [facility] 03/14/2023 16:12:52 Date Recorded Systolic blood pressure Diastolic blood pressure Provider Name and Address Organization Details Last Updated DateTime 05/08/2023 118 mm[Hg] 82 mm[Hg] Moriah Schofield RN [place] [employer] [facility] 05/08/2023 16:34:08 Date Recorded Systolic blood pressure Diastolic blood pressure Provider Name and Address Organization Details Last Updated DateTime 08/03/2023 108 mm[Hg] 66 mm[Hg] Liss Tapia RN [facility] [employer] 08/03/2023 16:10:49 Date Recorded Systolic blood pressure Diastolic blood pressure Provider Name and Address Organization Details Last Updated DateTime 11/22/2023 120 mm[Hg] 72 mm[Hg] Liss Tapia RN [place] [employer] [facility] 11/22/2023 16:00:35 Date Recorded Systolic blood pressure Diastolic blood pressure Provider Name and Address Organization Details Last Updated DateTime 03/27/2024 110 mm[Hg] 74 mm[Hg] Nisa Cote MA [place] [facility] [employer] [facility] 03/27/2024 10:02:50 Social History Question Answer Notes LastModified by Organizat ion Details LastModified Time Tobacco Smoking Status Former Smoker Nisa FARZANA Cote null, [place] - [facility] [place] [employer] [facility] 03/27/2024 10:08:13 Do You Have An Advance Directive? No [id number] Information not available 04/27/2022 What Is Your Level Of Alcohol Consumption? None MIGRATION.347208 4329 Information not available 04/27/2022 Do You Wear A Helmet When Biking? No MIGRATION.403922 0659 Information not available 04/27/2022 What Is Your Level Of Caffeine Consumption? Moderate MIGRATION.007609 0451 Information not available 04/27/2022 How Much Tobacco Do You Chew? None MIGRATION.989254 7121 Information not available 04/27/2022 In The 14 Days Before Symptom Onset, Have You Had Close Contact With A Laboratory-confir med COVID-19 While That Case Was Ill? No MIGRATION.276601 1300 Information not available 04/27/2022 In The 14 Days Before Symptom Onset, Have You Had Close Contact With A Person Who Is Under Investigation For COVID-19 While That Person Was Ill? No MIGRATION.019901 6472 Information not available 04/27/2022 What Type Of Diet Are You Following? REGULAR MIGRATION.871023 4090 Information not available 04/27/2022 Which Illicit Or Recreational Drugs Have You Used? Marijuana Information not available 03/27/2024 Do You Or Have You Ever Used E-cigarettes Or Vape? Current User Of Electronic Cigarettes [email or web address] Information not available 06/29/2022 What Is The Highest Grade Or Level Of School You Have Completed Or The Highest Degree You Have Received? ND36100-9 MIGRATION.234334 9909 Information not available 04/27/2022 What Is Your Occupation? [employer] MIGRATION.389396 9327 Information not available 04/27/2022 Have There Been Any Changes To Your Family Or Social Situation? No MIGRATION.161279 0276 Information not available 04/27/2022 What Is The Fluoride Status Of Your Home? Unknown MIGRATION.705678 0484 Information not available 04/27/2022 When Did You Quit Smoking? 1-5yearssincel ganga Information not available 03/27/2024 Are There Any Guns Present In Your Home? No MIGRATION.794099 6665 Information not available 04/27/2022 Do You Use Insect Repellent Routinely? Yes MIGRATION.891445 7186 Information not available 04/27/2022 Do You Have A Medical Power Of Processing Engineer? No MIGRATION.044166 6520 Information not available 04/27/2022 What Was The Date Of Your Most Recent Tobacco Screening? 03/27/2024 Information not available 03/27/2024 Do You Have Any Pets? Yes MIGRATION.447860 6856 Information not available 04/27/2022 What Is Your Relationship Status? MIGRATION.971142 6122 Information not available 04/27/2022 Do You Use Your Seat Belt Or Car Seat Routinely? Yes MIGRATION.959207 4092 Information not available 04/27/2022 Do You Have Smoke And Carbon Monoxide Detectors In Your Home? Yes MIGRATION.373393 8934 Information not available 04/27/2022 At What Age Did You Start Smoking Tobacco? 20 MIGRATION.015741 6951 Information not available 04/27/2022 Are You Passively Exposed To Smoke? No MIGRATION.762647 4985 Information not available 04/27/2022 Do You Or Have You Ever Used Smokeless Tobacco? Never Used Smokeless Tobacco MIGRATION.477635 7241 Information not available 04/27/2022 Are There Any Smokers In Your House? No MIGRATION.106204 0621 Information not available 04/27/2022 How Much Tobacco Do You Smoke? 1 PPD Information not available 03/27/2024 Do You Participate In Social Media? Yes MIGRATION.586623 1974 Information not available 04/27/2022 Do You Feel Stressed (tense, Restless, Nervous, Or Anxious, Or Unable To Sleep At Night)? RX0702-4 MIGRATION.356615 0426 Information not available 04/27/2022 Do You Use Any Illicit Or Recreational Drugs? Yes Information not available 03/27/2024 Do You Use Sunscreen Routinely? No MIGRATION.218421 5337 Information not available 04/27/2022 Have You Recently Traveled Abroad? No MIGRATION.783832 7808 Information not available 04/27/2022 Have You Used IV Drugs? No Information not available 03/27/2024 Are You Currently In School? No MIGRATION.958651 2901 Information not available 04/27/2022 Do You Have Any Dietary Restrictions? No MIGRATION.586821 7574 Information not available 04/27/2022 Do You Or Have You Ever Used Any Other Forms Of Tobacco Or Nicotine? Yes Information not available 03/27/2024 How Many Years Have You Used E-cigarettes Or Vape? 0 Information not available 03/27/2024 Sex: Unknown Functional Status Question Answer Note LastModified by Organizat ion Details LastModified Time What is your exercise level? Occasional MIGRATION.[id number] 26 Information not available 04/27/2022 Mental Status None recorded. Family History Relationship Description Onset Age of this Age Resolved Age Notes LastModified by Organization Details LastModified Time Mother Congestive heart failure Cholec ystect sandra MIGRATION.165 [id number] Not available 04/27/2022 22:23:27 Father Myocardial infarction MIGRATION.332 [id number] Not available 04/27/2022 22:23:27 Medical History No medical history recorded. Gynecological HistoryNo gynecological history recorded. Obstetrics History GPAL:G 0 P 0 0 0 0 Immunizations Vaccine Type Date Status Note Provider Nam e and Address Organization Details Recorded Time Influenza, split virus, quadrivalent, PF 1 completed Not Available [facility] 03/16/2023 20:54:59 Influenza, MDCK, quadrivalent, PF 2 completed Margarita Jones APRN [address], [place], [address], [facility] [employer] 01/17/2024 17:21:21 COVID-19, mRNA, LNP-S, PF, 30 mcg/0.3 mL dose 1 completed Margarita Jones APRN [address], [place], [address], [facility] [employer] [facility] 01/17/2024 17:21:21 COVID-19, mRNA, LNP-S, PF, 30 mcg/0.3 mL dose 1 completed Margarita Jones APRN [address], [place], [address], [facility] [employer] [facility] 01/17/2024 17:21:21 COVID-19, mRNA, LNP-S, PF, 30 mcg/0.3 mL dose 1 completed Margarita Jones APRN [address], [place], [address], [facility] [employer] [facility] [employer] [facility] 01/17/2024 17:21:21 COVID-19, mRNA, LNP-S, PF, 30 mcg/0.3 mL dose, julianna-sucrose 2 completed Margarita Jones APRN [address], [place], [address], [facility] [employer] [facility] 01/17/2024 17:21:21 COVID-19, mRNA, LNP-S, bivalent, PF, 30 mcg/0.3 mL dose 2 completed Margarita Jones APRN [address], [place], [address], [facility] [employer] [facility] [employer] [facility] 01/17/2024 17:21:21 Td (adult), 2 Lf tetanus toxoid, preservative free, adsorbed 8 completed Margarita Jones APRN [address], [place], [address], [facility] [employer] [facility] 01/17/2024 17:21:21 Hep B, adolescent or pediatric [address], [place], [address], [facility] [employer] [facility] 01/17/2024 17:21:21 Hep B, adolescent or pediatric 8 completed Margarita Jones APRN [address], [place], [address], [facility] [employer] [facility] 01/17/2024 17:21:21 Influenza, split virus, quadrivalent, PF 8 completed Margarita Jones APRN [address], [place], [address], [facility] [employer] [facility] 01/17/2024 17:21:21 Influenza, MDCK, quadrivalent, PF 3 completed Margarita Jones APRN [address], [place], [address], [facility] [employer] [facility] 01/17/2024 17:21:31 COVID-19, mRNA, LNP-S, PF, julianna-sucrose, 30 mcg/0.3 mL 3 completed Margarita Jones APRN [address], [place], [address], [facility] [employer] [facility] 01/17/2024 17:21:31 COVID-19, mRNA, LNP-S, PF, julianna-sucrose, 30 mcg/0.3 mL 4 completed Margarita Jones APRN [address], [place], [address], [facility] [employer] [facility] 03/27/2024 10:32:36 Influenza, split virus, trivalent, PF 4 completed Margarita Jones APRN [address], [place], [address], [facility] [employer] [facility] 03/27/2024 10:32:36 Past Encounters Encounter ID Performer Location Encounter Start Date Encounter Closed Date Diagnosis/Indication Diagnosis SNOMED-CT Code Diagnosis ICD10 Code Diagnosis Note [id number] S_G Primary Care [facility] [address] [place] [address] 2020 00:00:00 2020 21:22:14 [id number] [facility] General Surgery [address] [address] 04/30/2020 00:00:00 04/30/2020 13:50:51 [id number] [facility] General Surgery [address] [address] 05/12/2020 00:00:00 05/12/2020 12:24:41 [id number] S_GMG Primary Care [facility] [address] [place] [address] 08/06/2020 00:00:00 08/25/2020 16:36:34 [id number] [facility] Primary [facility] [place] [address] [place] [address] 09/17/2020 00:00:00 09/17/2020 09:17:45 [id number] [facility] [place] [address] [place] [address] 11/25/2020 00:00:00 11/25/2020 16:09:45 [id number] [facility] [place] [address] [place] [address] 03/08/2021 00:00:00 2021 18:01:26 [id number] [facility] [place] [address] [place] [address] 06/21/2021 00:00:00 06/21/2021 12:40:18 [id number] [facility] [place] [address] [place] [address] 06/29/2021 00:00:00 06/29/2021 20:06:56 [id number] [facility] [place] [address] [place] [address] 02/24/2022 00:00:00 02/24/2022 14:15:58 [id number] [facility] [place] [address] [place] [address] 04/04/2022 00:00:00 04/04/2022 10:06:21 [id number] Yuli Yen MD [facility] [place] [address] [place] [address] 06/29/2022 15:55:01 06/29/2022 16:58:47 Adult health examination 154006548 Z00.00 Z13.220 Z13.1 Z79.899 Colon cancer screen at 47recommen d pap smearmammo gram order givenflu vaccine yearlycovi d vaccine per cdc guidelines Screening mammography 24 609153 Z12.31 Hyperglycemia 31895726 R 73.9 [id number] Yuli Yen MD [facility] Primary Care [facility] [address] [place] [address] 09/08/2022 16:15:39 09/08/2022 16:48:56 Dizziness 359420676 R42 Kidney stone 53266545 N2 0.0 Pain of le ft knee joint 2756542900 33286 M25.392 [id number] Yuli Yen MD [facility] Primary Care [facility] [address] [place] [address] 03/14/2023 16:04:12 03/14/2023 16:57:52 Nicotine dependence 82668337 F17.200 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 02/08/23re ceiving PT/STnot cleared to driveout of work until releasedha s f/u scheduled with neurology and neurosurge ry [id number] Yuli Yen MD [facility] Primary Care [facility] [address] [place] [address] 05/08/2023 16:29:16 05/08/2023 17:18:14 Goiter 5633688 E04.9 bx done 04/10/23-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 nodular diseasepla n repeat US in 12/2023 to monitor Glial tumor of brain 254 036095 C71.9 low grades/p resection 02/08/23re ceiving PT/STnot cleared to driveout of work until releasedha s f/u scheduled with neurology and neurosurge ry 05/08/23: continues to have seizures, memory lapses, word finding difficulti esunder care of neurology and neurosurge rynot able to return to work until released [id number] CANDELARIA Crisostomo-[place] [facility] Primary Care [facility] [address] [facility] [place] [address] 08/03/2023 16:00:31 08/03/2023 16:28:27 Seizure 00653589 R56.9 -discharge d 07/22-told seizures were focal, likely related to past surgeries- already has neurology on-board-l ast seizure was the day of d/c-f/u with neuro scheduled for september Glial tumor of brain 254 217332 C71.9 -currently working with restrictio ns , lift no more than 5 lbs, no push/pull pallet jacks/pall ets-reques ting to have restrictio ns lifted-not e created Pain of left heel 585013 8974 577520 M79.672 -pain for 1 month-xr calcaneus ordered-gi collin referral [id number] PROSPER Crisostomo [facility] Primary Care [facility] [address] [place] [address] 11/22/2023 15:52:27 11/22/2023 16:38:34 Pain of left knee joint 2579935888 52062 M25.562 Urge incon tinence of urine 94882062 N39.41 Dysuria 29682769 R30.0 [id number] Margarita Jones APRN [facility] Primary Care [facility] [address] [place] [address] 03/27/2024 09:50:31 03/27/2024 10:46:43 Hyperglycemia 26779361 R73.9 Goiter 8143022 E04.9 Hyperlipid emia screening 984011567 Z13.220 Screening for disorder 536582398 Z13.9 Hepatitis C screening 41 4690372 Z11.59 Acute urin stuart tract infection 020028039 N39.0 Health Concerns Section Related Observation LastModified by Organization Detai ls LastModified Time None Recorded Concern Status LastModified by Organization Details LastModified Time None Recorded Advance Directives Directive N: Payers Encounter Date Sequence Insurance Name Policy Number Policy Bernal Covered Member ID Bernal Member ID Guarantor Name 03/14/2023 1 [employer] (PPO) [id number] Arlet Shah [id number] Arlet Shah 03/14/2023 2 [place] [id number] Micole Flynn [id number] Arlet E Walker 05/08/2023 1 [employer] (PPO) [id number] Arlet Walker [id number] Arlet E Walker 05/08/2023 2 [place] [id number] Micole Miles [id number] Arlet E Walker 08/03/2023 1 [employer] (PPO) [id number] Arlet Walker [id number] Arlet E Walker 08/03/2023 2 [place] [id number] Micole Miles [id number] Arlet E Walker 11/22/2023 1 [employer] (PPO) [id number] Arlet Walker [id number] Arlet E Walker 11/22/2023 2 [place] [id number] Micole Miles [id number] Arlet E Walker 03/27/2024 1 [employer] (PPO) [id number] Arlet Walker [id number] Arlet E Walker 03/27/2024 2 [place] [id number] Micole Miles [id number] Arlet E Walker Notes Date Note Type Note Provider Name and Address Organization Details Recorded Time 03/14/2023 text/html here for f/u on hospital stay for brain tumor resection on 02/08/23. 03/27 neurology appt [facility] neurosurgery f/u in 3 months, MRI first PT/ST 2x per week for each of those for up to 10 appts-having some vision disturbance, some aphasia, strength is ok, balance improving but not yet to baseline, not able to drive until seizure free for 6 months, last seizure was 02/09/24 Last day of work 02/08/23, will return to work on 03/21/23 thyroid bx scheduld on 03/20/23 has diarrhea since having gallbladder out Yuli Yen MD [address] [facility] [address] [address], [place], [address], [facility] [employer] 03/28/2023 19:18:57 05/08/2023 text/html here for f/u on hospital stay for brain tumor resection on 02/08/23. 03/27 neurology appt [facility] neurosurgery f/u in 3 months, MRI first PT/ST 2x per week for each of those for up to 10 appts-having some vision disturbance, some aphasia, strength is ok, balance improving but not yet to baseline, not able to drive until seizure free for 6 months, last seizure was 02/09/24 Last day of work 02/08/23, will return to work on 03/21/23 thyroid bx scheduld on 03/20/23 has diarrhea since having gallbladder out update 05/08/23: having some memory lapses, word finding difficulty, hard to identify objects. Was going to PT and ST but could not afford further sessions-has to take uber because she cannot drive yet but cannot drive. she continues to have seizures, she was switched to lamictal 100 mg bid. She will have f/u testing in June and care home treatment with either medication or surgery. she was not able to tolerate chantix-was feeling depressed and having vivid dreams. Yuli Yen MD [address], [place], [address], [employer] 05/27/2023 08:49:13 08/03/2023 text/html pt recently in [facility] Rishi ChairezCELI clayP-C [address], [place], [address], [employer] 08/03/2023 16:24:51 11/22/2023 text/html pt is here for f/u Rishi Carolina lopez [employer] [address], [place], [address], [employer] 11/22/2023 16:22:57 03/27/2024 text/html Dalton present s today to establish care. He states that he had surgery to remove brain tumors last year and he states that he will be having a procedure on April 22 that requires a hospital stay. Margarita Jones APRN [address], [place], [address], [facility] 03/28/2024 14:09:05 OBGyn Episode No OBEpisode recorded.
--- OUTSIDE RECORDS SUMMARY | 2024-03-30 07:27 | XMS_ITS | Clinical Summary ---
Author Organization [facility] Address [address] [place] [address]. [place], [place] [address] [place] [address] Care Team Providers Care Musical Instrument Mechanic Name Role Phone Yuli Yen MD Primary Care Provider [phone] Allergies Active Allergy Reactions Criticality Noted Date Comments Tape Other (see comment) Medium 05/11/2017 IRRITATED SKIN Medications sertraline 100 MG tablet Take 100 mg by mouth daily. 12/02/2019 Active traZODone 50 MG tablet Take 1 tablet by mouth nightly as needed. Active Active Problems Problem Noted Date Diagnosed Date Precordial pain 04/03/2020 Class 2 severe obesity due t o excess calories with serious comorbidity in adult, unspecified BMI ([facility]) 04/03/2020 Kidney stone 02/18/2020 Chronic anxiety 02/18/2020 Left ureteral stone 05/16/2017 Obstructive uropathy 05/05/2017 Bacteriuria with pyuria 05/04/2017 Bilateral nephrolithiasis 05/04/2017 Hydronephrosis, left 05/04/2017 Cholelithiasis 05/04/2017 Pyelonephritis 05/04/2017 Immunizations Name Administration Dates Next Due Influenza Adult (Generic) 05/05/2017 Family History Medical History Relation Comments Heart Attack Father CHF Mother Relation Status Comments Father Mother Social History Tobacco Use Types Packs/Day Years Used Date Smoking Tobacco: Former Cigarettes 1 18 Smokeless Tobacco: Never Alcohol Use Standard Drinks/Week Comments Not Currently 0 (1 standard drink = 0.6 oz pur e alcohol) Comments Unknown Sex and Gender Information Value Date Recorded Sex Assigned at Not on file Legal Sex Female 8:21 PM CDT Gender Identity Not on file Sexual Orientation Not on file Last Filed Vital Signs Vital Sign Reading Time Taken Comments Blood Pressure 115/80 08/28/2020 9:07 AM CDT Pulse 67 08/28/2020 8:50 AM CDT Temperature 36.5 ??C (97.7 ??F) 08/28/2020 8:50 AM CD T Respiratory Rate 24 08/28/2020 8:50 AM CDT Oxygen Saturation 97% 08/28/2020 8:50 AM CDT Inhaled Oxygen Concentration - - Weight 98 kg (216 lb) 08/28/2020 8:50 AM CDT Height 146.1 cm (4' 9.5 ) 08/28/2020 8:50 AM CDT Body Mass Index 45.93 08/28/2020 8:50 AM CDT Plan of Treatment Health Maintenance Due Date Last Done Comments Cervical Cancer Screening Pa p Smear (Age 30 to 64) Every 3 Years 1982 Annual Physical 1985 Hepatitis C 2000 DTaP, Tdap and Td Vaccines ( 1 - Tdap) 2001 Hepatitis B Vaccines (1 of 3 - 19+ 3-dose series) 2001 Cervical Cancer Screening Pa p with HPV Testing (Age 30 to 64) Every 5 Years 2012 Cervical Cancer Screening with HPV 2012 Mammogram Screening 2022 COVID-19 Vaccine (2023-2 5 season) 2023 Influenza Adult (#1) 2023 05/05/2017 HPV Vaccines Aged Out No longer eligi ble based on patient's age to complete this topic Meningococcal B Vaccine Aged Out No l onger eligible based on patient's age to complete this topic Meningococcal Vaccine Aged Out No garcia bekah eligible based on patient's age to complete this topic Pneumococcal Vaccine: Pediat rics (0 to 5 Years) and At-Risk Patients (6 to 64 Years) Aged Out No longer eligi ble based on patient's age to complete this topic RSV Immunizations Under 20 Months Aged Out No longer eligible based on patient's age to complete this topic Insurance [facility] Care Teams Musical Instrument Mechanic Relationship Specialty Start Date End Date Yuli Yen MD [address] [place] [address] [place] [address] PCP - General FAMILY PRACTICE 03/03/20
[2024-03-30 09:01] LABS: Basophils Percent Auto 0.6 % (0.2-1.2); Eosinophils Absolute Auto 0.2 K/mm3 (0-0.3); Eosinophils Percent Auto 2.2 % (0-4.4); Hematocrit 38.6 % (37.0-47.0); Immature Granulocyte Absolute 0.03 K/mm3 (0.00-0.031); Immature Granulocyte Percent A 0.4 % (0-0.5); Lymphocytes Absolute Auto 1.61 K/mm3 (0.9-3.2); Lymphocytes Percent Auto 23.8 % (18.3-44.2); Mean Corpuscular HGB Conc 31.1 g/dl (32-36); Mean Corpuscular Hemoglobin 27.9 pg (26-34); Mean Corpuscular Volume 89.8 fl (80-100); Mean Platelet Volume 8.5 fl (7.4-10.4); Monocytes Absolute Auto 0.5 K/mm3 (0.1-0.6); Monocytes Percent Auto 6.6 % (2.6-8.5); Neutrophils Absolute Auto 4.5 K/mm3 (1.3-6.7); Neutrophils Percent Auto 66.4 % (45.5-73.1); Platelet Count Result 399 k/mm3 (150-375); Red Cell Distribution Width 13.6 % (11.5-14.5); White Blood Count 6.8 K/mm3 (4.5-10.0)
[2024-03-30 09:08] LABS: Add Urine Microscopic? YES; Appearance Urine Turbid (Clear); Bacteria Urine 4+ /hpf; Bilirubin Urine Negative (Negative); Blood Urine Negative (Negative); Color Urine Yellow (Yellow); Glucose Urine UA Negative (Negative); Ketones Urine Negative (Negative); Leukocyte Esterase Ur 2+ LEU/UL (Negative); Nitrate Urine Negative (Negative); Non Pathogenic Casts 0-2; Protein Urine Negative (Negative); RBC Urine 0-2 /hpf (0-2); Specific Grav Ur 1.017 (1.001-1.035); Squamous Epithelial Cell Urine Occasional /hpf (Few); Urobilinogen Urine 0.2 mg/dL (<2.0); WBC Urine >100 /hpf (0-3); pH Urine 7.5 (5.0-9.0)
[2024-03-30 09:22] LABS: Alanine Aminotransferase 13 U/L (6-35); Alkaline Phosphatase 87 U/L (38-126); Anion Gap 8 mmol/L (4-12); Aspartate Amino Transferase 19 U/L (14-36); Bilirubin,Total 0.4 mg/dL (0.2-1.3); Blood Urea Nitrogen 8 mg/dL (7-17); Calcium 9.4 mg/dL (8.4-10.2); Carbon Dioxide 27 mmol/L (22-30); Chloride 105 mmol/L (98-107); Cholesterol 193 mg/dL (0-200); Estimated Glomerular Filt Rate > 60; Glucose 95 mg/dL (65-110); HDL Direct 37 mg/dL; Potassium 4.3 mmol/L (3.4-5.0); Sodium 140 mmol/L (137-145); Triglycerides 115 mg/dL (<150)
[2024-03-30 09:33] LABS: LDL Cholesterol Direct 133 mg/dL
[2024-03-30 10:18] LABS: Free T4 Free Thyroxine 0.92 ng/dL (0.78-2.19)
[2024-03-30 10:21] LABS: Hepatitis C Virus Antibody Negative (Negative)
[2024-03-30 10:22] LABS: Hemoglobin A1C 5.3 % (<5.7)
== END 2024-03-30 07:22 | disposition home or self-care (01) ==
LOC: ANHLAB 07:24
PROVIDERS: Visit Provider Nurse Practitioner Family
DX: E04.9 Nontoxic goiter, unspecified (principal); N39.0 Urinary tract infection, site not specified; R73.9 Hyperglycemia, unspecified; Z11.59 Encounter for screening for other viral diseases; Z13.220 Encounter for screening for lipoid disorders; Z13.9 Encounter for screening, unspecified
CPT/HCPCS: 36415; 80053; 80061; 81001; 83036; 84439; 84443; 85025; 86803

== ENCOUNTER 2024-07-26 17:09 | Emergency (ER) | payer OTHER, BC, SELFPAY ==
[2024-07-26 17:19] VITALS: BP 142/63; PULSE 81; RESP 16; TEMP 36.9; O2SAT 98
--- NOTE | 2024-07-26 17:28 | ED_ITS ---
HPI - Extremity Injury (Lower) General Chief Complaint: Extremity Problem,Nontraumatic Stated Complaint: Bruise Source: patient Mode of arrival: ambulatory Limitations: no limitations History of Present Illness HPI Narrative: Patient is a 44 year old transgender male who presents to the clinic with complaints of a bruise to her left calf without pain x 2 days. Denies any injury, fall, or being on blood thinners. Related Data Home Medications ?Medication ?Instructions ?Recorded ?Confirmed ?Last Taken ?Type olanzapine 5 mg tablet 5 mg PO DAILY 08/23/21 07/04/24 Unknown History sertraline 50 mg tablet 50 mg PO DAILY 08/23/21 07/04/24 Unknown History lamotrigine 100 mg tablet 200 mg PO DAILY 05/23/23 07/04/24 Unknown History Allergies Allergy/AdvReac Type Severity Reaction Status Date / Time latex Allergy Unknown Unknown Verified 07/26/24 17:22 adhesive tape AdvReac Unknown Redness of Verified 07/26/24 17:22 Skin ibuprofen AdvReac Other Verified 07/26/24 17:22 Review of Systems Review of Systems: CONSTITUTIONAL: Denies body aches, fever, chills, or sweats. EYES: Denies visual changes, redness, or discharge. ENT: Denies rhinorrhea, congestion CARDIOVASCULAR: Denies chest pain, palpitations, or edema. RESPIRATORY: Denies cough or dyspnea. GASTROINTESTINAL: Denies abdominal pain, nausea, vomiting, or diarrhea. SKIN: ?Reports bruise to left calf MUSCULOSKELETAL: Denies back pain, joint pain, or myalgia. NEUROLOGIC: Denies headache, numbness, tingling, or weakness. All systems reviewed & are unremarkable except as noted in HPI and below PMFSH Past Medical History Medical History Injury of ligament of knee Patellar subluxation Left knee pain Surgical History Surgical History Kidney stones History of cholecystectomy Family History Family History Father Acute myocardial infarction, Onset Age: 39 Mother Family history of congestive heart failure, Onset Age: 69 Sibling Heart disease Hypertension Social History Social History Smoking packs per day: 1 Smoking cigarettes per day: 20.0 Years smoked: 23 Smoking pack-years: 23.00 Smoking status: Current every day smoker Tobacco type: cigarettes and e-cigarettes/vaping Alcohol intake: never Substance use: current Substance use type: marijuana Living arrangements: with family Occupation/Education: occupation Spiritual care concerns: No Comments At time of signature, I have reviewed and agree with nursing past medical, surgical, social and family history unless otherwise noted. Please see nursing chart for further information. There is no relevant family history pertinent to the presenting complaint. Exam Narrative: GENERAL: Well-appearing HEAD: Normocephalic, atraumatic. EYES: ?conjunctivae clear, and EOMI. ENT: Mucous membranes moist. Oropharynx without edema, erythema or lesions. NECK: Supple. No lymphadenopathy CHEST: Clear to auscultation. HEART: Regular rate and rhythm. SKIN: Warm, dry. ?5cm x 5cm Hematoma noted to left calf. NEURO: ?Alert and oriented x3.? Course Course Level of Care: Express Care Visit Vital Signs Vital signs: Vital Signs Temperature 98.5 F 07/26/24 17:19 Pulse Rate 81 07/26/24 17:19 Respiratory Rate 16 07/26/24 17:19 Blood Pressure 142/63 H 07/26/24 17:19 Pulse Oximetry 98 07/26/24 17:19 Temperature 98.5 F 07/26/24 17:19 Pulse Rate 81 07/26/24 17:19 Respiratory Rate 16 07/26/24 17:19 Blood Pressure 142/63 H 07/26/24 17:19 Pulse Oximetry 98 07/26/24 17:19 Reviewed MDM - Extremity Injury (Lower) MDM Narrative Medical decision making narrative: Discussed physical exam findings. Advised supportive measures and signs/symptoms to go to the ER. Pt is appropriate for outpatient treatment and follow up. Differential Diagnosis Differential diagnosis: Likely other (hematoma, contusion to left calf, blood clot) Critical Care Time Critical Care Time Critical Care Time: No Discharge Plan Discharge Clinical Impression: Contusion Qualifiers: Encounter type: initial encounter Contusion area: lower leg Laterality: left Qualified Code(s): S80.12XA - Contusion of left lower leg, initial encounter Patient Disposition: Home Condition: Stable Instructions: Antibiotic Form, Contusion in Adults (ED) Additional Instructions: Rest. Avoid running or excessive walking or anything that worsens the symptoms You can alternate Tylenol and ibuprofen for pain. Alternate ice/heat to the site. Follow up with your primary care provider as needed in 1 week Go to the ER for worsening symptoms or concerns Patient Language: [place] Prescriptions: No Action sertraline 50 mg tablet 50 mg PO DAILY olanzapine 5 mg tablet 5 mg PO DAILY lamotrigine 100 mg tablet 200 mg PO DAILY Follow-up/Referrals: PHYSICIAN,BUILDING [employer]ATION INSTALLER [Primary Care Provider] - Time of Disposition: 17:54
== END 2024-07-26 18:03 | disposition home or self-care (01) ==
DX: S80.12XA Contusion of left lower leg, initial encounter (principal); X58.XXXA Exposure to other specified factors, initial encounter; F17.210 Nicotine dependence, cigarettes, uncomplicated; F17.290 Nicotine dependence, other tobacco product, uncomplicated; F12.90 Cannabis use, unspecified, uncomplicated
CPT/HCPCS: 99212; G0463